=== PATIENT | female | born 1935 | race Hispanic/Latino ===

== ENCOUNTER 2018-05-23 14:05 | Emergency (ER) | payer MEDICARE ==
[2018-05-23 14:05] VITALS: BMI 26.5
[2018-05-23 14:15] VITALS: RESP 18; O2SAT 96
--- NOTE | 2018-05-23 14:43 | ED PDOC ---
Arrival/HPI - General Chief Complaint: High Blood Pressure Time Seen by Provider: 05/23/18 14:09 Historian: Patient - History of Present Illness Narrative History of Present Illness (Text): 05/23/18 14:43 A 70 year old female, whose past medical history includes 4 stents, ID, and diabetes, presents to the emergency department complaining of high blood pressure since earlier today. Patient reports she measured her blood pressure at home which measured to be 250/100. Patient states she spoke with Dr. Bright who urged her to go to the Emergency room. Patient states she only gets lightheaded when she puts on her new glasses. Patient's Emergency department blood pressure measurement is 160/60. Patient denies any fever, chills, shortness of breath, chest pain, diarrhea, nausea, vomiting, urinary symptoms, back pain, neck pain, headache, dizziness, or any other complaints. PMD: Dr. Bright Time/Duration: 4-6 hours (esrlier today) Symptom Onset: Gradual Symptom Course: Improving Activities at Onset: Light Context: Home Past Medical History - Provider Review Nursing Documentation Reviewed: Yes - Infectious Disease Hx of Infectious Diseases: None - Tetanus Immunization Tetanus Immunization: Unknown - Cardiac Hx Pacemaker: No Other/Comment: cardiac stent - Pulmonary Hx Chronic Obstructive Pulmonary Disease (COPD): Yes - Neurological Hx Paralysis: No - HEENT Hx HEENT Disorder: No - Renal Hx Renal Disorder: No - Endocrine/Metabolic Hx Diabetes Mellitus Type 2: Yes - Hematological/Oncological Hx Blood Transfusions: No Hx Blood Transfusion Reaction: No - Integumentary Hx Dermatological Disorder: No - Musculoskeletal/Rheumatological Hx Musculoskeletal Disorders: No - Gastrointestinal Hx Gastrointestinal Disorders: No - Genitourinary/Gynecological Hx Genitourinary Disorders: No - Psychiatric Hx Emotional Abuse: No Hx Physical Abuse: No Hx Substance Use: No - Surgical History Hx Cardiac Catheterization: Yes Hx Coronary Stent: Yes - Anesthesia Hx Anesthesia: Yes Hx Anesthesia Reactions: No Hx Malignant Hyperthermia: No - Suicidal Assessment Feels Threatened In Home Enviroment: No Family/Social History - Physician Review Nursing Documentation Reviewed: Yes Family/Social History: No Known Family HX Smoking Status: Light Smoker < 10 Cigarettes Daily Hx Alcohol Use: No Hx Substance Use: No Hx Substance Use Treatment: No Allergies/Home Meds Allergies/Adverse Reactions: Allergies ORANGES Adverse Reaction (Uncoded 06/12/13 13:33) URTICARIA Home Medications: Home Meds Medication Instructions Recorded Confirmed Aspirin [Aspir 81] 81 mg PO DAILY 12/11/12 08/15/15 Cilostazol [Pletal] 100 mg PO BID 12/11/12 08/15/15 Metoprolol Tartrate 25 mg PO BID 12/11/12 08/15/15 Alendronate [Fosamax] 1 tab PO SUN 04/07/14 08/15/15 Clopidogrel [Plavix] 75 mg PO DAILY 04/20/14 08/15/15 Atorvastatin [Lipitor] 40 mg PO DAILY 08/15/15 08/15/15 Pantoprazole Sodium [Protonix] 40 mg PO DAILY 08/15/15 08/15/15 Review of Systems - Physician Review All systems were reviewed & negative as marked: Yes - Review of Systems Constitutional: absent: Fatigue, Weight Change, Fevers, Night Sweats Eyes: absent: Vision Changes ENT: absent: Hearing Changes Respiratory: absent: SOB Cardiovascular: absent: Chest Pain, Palpitations, Edema, Calf Pain, CALDERA Gastrointestinal: absent: Abdominal Pain, Stool Changes, Diarrhea, Nausea, Vomiting, Anorexia, Food Intolerance Genitourinary Female: absent: Dysuria, Frequency, Hematuria, Urine Output Changes Musculoskeletal: absent: Back Pain, Neck Pain Skin: absent: Rash, Pruritis, Skin Lesions Neurological: absent: Headache, Dizziness, Focal Weakness, Gait Changes, Speech Changes, Facial Droop, Disequilibrium Endocrine: absent: Diaphoresis, Polyuria, Polydipsia Hemo/Lymphatic: absent: Adenopathy Psychiatric: absent: Anxiety, Depression Physical Exam Vital Signs Reviewed: Yes Vital Signs Temp Pulse Resp BP Pulse Ox 05/23/18 14:06 97.8 F 87 18 166/78 H 96 Temperature: Afebrile Blood Pressure: Hypertensive Pulse: Regular Respiratory Rate: Normal Appearance: Positive for: Well-Appearing, Non-Toxic, Comfortable Pain Distress: None Mental Status: Positive for: Alert and Oriented X 3 - Systems Exam Head: Present: Atraumatic, Normocephalic Pupils: Present: PERRL Extroacular Muscles: Present: EOMI Conjunctiva: Present: Normal Neck: Present: Normal Range of Motion. No: Meningeal Signs Respiratory/Chest: Present: Clear to Auscultation, Good Air Exchange. No: Respiratory Distress, Accessory Muscle Use Cardiovascular: Present: Regular Rate and Rhythm, Normal S1, S2. No: Murmurs Abdomen: Present: Normal Bowel Sounds. No: Tenderness, Distention, Peritoneal Signs Back: Present: Normal Inspection. No: CVA Tenderness Upper Extremity: Present: Normal Inspection, NORMAL PULSES, Capillary Refill < 2s. No: Cyanosis, Edema Lower Extremity: Present: Normal Inspection, NORMAL PULSES, Capillary Refill < 2 s. No: Edema, CALF TENDERNESS Neurological: Present: GCS=15, CN II-XII Intact, Speech Normal Skin: Present: Warm, Dry, Normal Color. No: Rashes Psychiatric: Present: Alert, Oriented x 3, Normal Insight, Normal Concentration Medical Decision Making ED Course and Treatment: 05/23/18 14:44 Impression: 83 year old female presenting to emergency department for high blood pressure. No other complaints. No CP or SOB. No abdominal pain. Pt notes glucose was 199 today but denies any other complaints. No sob, chest pain or abdominal pain. No decreased or increased urine output or GI or complaints. Likely Asymptomatic HTN. BP here is non-sig elevated. Plan: -- Emergency department fingerstick -- Reassess and disposition Prior Visits: Notes and results from previous visits were reviewed. Progress Notes: 05/23/18 14:[address] Bright who agrees with emergency department plan to discharge patient. He states he never received any complaints of chest pain or shortness of breath. glucose 105, clear for d/c home. pt agreeable to plan. - Scribe Statement The provider has reviewed the documentation as recorded by the Jonah Tolliver All medical record entries made by the Scribe were at my direction and personally dictated by me. I have reviewed the chart and agree that the record accurately reflects my personal performance of the history, physical exam, medical decision making, and the department course for this patient. I have also personally directed, reviewed, and agree with the discharge instructions and disposition. Disposition/Present on Arrival - Present on Arrival Any Indicators Present on Arrival: No History of DVT/PE: No History of Uncontrolled Diabetes: No Urinary Catheter: No History of Decub. Ulcer: No History Surgical Site Infection Following: None - Disposition Have Diagnosis and Disposition been Completed?: Yes Diagnosis: Asymptomatic hypertension Disposition: HOME/ ROUTINE Disposition Time: 14:55 Patient Problems: Current Active Problems Problem Status Onset Asymptomatic hypertension Acute Condition: GOOD Discharge Instructions (ExitCare): High Blood Pressure in Adults, Low Salt Diet, Controlling Your Blood Pressure Through Lifestyle Additional Instructions: CALL YOUR PRIMARY CARE DOCTOR IF YOUR PRESSURE IS ELEVATED AGAIN. YOU MIGHT NEED A NEW BLOOD PRESSURE CUFF. LENKA PANDA, thank you for letting us take care of you today. Your provider was Scott Nguyen and you were treated for HIGH BLOOD PRESSURE. The emergency medical care you received today was directed at your acute symptoms. If you were prescribed any medication, please fill it and take as directed. It may take several days for your symptoms to resolve. Return to the Emergency Department if your symptoms worsen, do not improve, or if you have any other problems. Please contact your doctor or call one of the physicians/clinics you have been referred to that are listed on the Patient Visit Information form that is included in your discharge packet. Bring any paperwork you were given at discharge with you along with any medications you are taking to your follow up visit. Our treatment cannot replace ongoing medical care by a primary care provider outside of the emergency department. Thank you for allowing the [facility] team to be part of your care today. If you had an X-Ray or CT scan: A Radiologist will review the ED reading if any change in treatment is needed we will contact you. If you had a blood, urine, or wound culture: It will take several days for the results, if any change in treatment is needed we will contact you. If you had an STI test: It will take 48 hours for the results. Please call after 1 week if you have not heard back. Referrals: Jamil Bright MD [Family Provider] - Follow up with primary Forms: Sevence (Belarusian)
[2018-05-23 15:23] VITALS: BP 156/82; PULSE 81; TEMP 98
== END 2018-05-23 15:24 | disposition home or self-care (01) ==
LOC: ED 14:05
DX: I10 Essential (primary) hypertension (principal); I25.2 Old myocardial infarction; E11.9 Type 2 diabetes mellitus without complications; Z95.5 Presence of coronary angioplasty implant and graft; F17.210 Nicotine dependence, cigarettes, uncomplicated

== ENCOUNTER 2018-07-11 12:37 | Outpatient (CLI) | payer MEDICARE | END 2018-07-11 12:38 | disposition home or self-care (01) | LOC: LAB 12:37 ==

== ENCOUNTER 2018-07-18 09:22 | Day surgery (SDC) | payer MEDICARE ==
[2018-07-18] MEDS ORDERED: Propofol 10 mg/ml Inj (20 ML) ONE ×2 (10:14→10:36)
[2018-07-18] MEDS ORDERED: Lactated Ringer's 1,000 ML IV SCH (10:15)
[2018-07-18] MEDS ORDERED: Phenylephrine 10 mg/ml Inj ONE (10:17)
[2018-07-18 14:29] VITALS: BP 166/82; PULSE 76; RESP 16; TEMP 98.3; O2SAT 98
== END 2018-07-18 12:34 | disposition home or self-care (01) ==
LOC: ENDO 09:22
PROVIDERS: ATTEND Internal Medicine Gastroenterology
DX: K29.70 Gastritis, unspecified, without bleeding (principal); K44.9 Diaphragmatic hernia without obstruction or gangrene; K21.9 Gastro-esophageal reflux disease without esophagitis; K22.70 Barrett's esophagus without dysplasia
CPT/HCPCS: 43239; 88305; 88312; 88342; J2001; J2370; J2704; J7040; J7120

== ENCOUNTER 2018-10-05 11:40 | Inpatient (IN) | payer MEDICARE ==
[2018-10-05 11:40] VITALS: BMI 26.5
[2018-10-05] MEDS ORDERED: Sodium Chloride 0.9% 1,000 ML IV STA (12:26)
--- NOTE | 2018-10-05 12:35 | ED PDOC ---
Arrival/HPI - General Chief Complaint: Weakness/Neurological Deficit Time Seen by Provider: 10/05/18 12:06 Historian: Patient - History of Present Illness Narrative History of Present Illness (Text): 10/05/18 12:32 A 83 year old female, whose past medical history includes COPD, hypertension, hyperlipidemia, [place], CAD, PBD, PUD, presents to the emergency department complaining of generalized weakness for the past 2 months. Patient reports she was trying to get off the couch, however was unable to due to weakness. Patient mentions she had an endoscopy done in 07/2018, performed by Dr. Whittington.Notes also experiencing diarrhea for the past 2 months, and abdominal pain, leg swelling, and chronic productive cough secondary to COPD. Patient denies any fever, chills, vomiting, nausea, or any other complaints at this time. Past Medical History - Provider Review Nursing Documentation Reviewed: Yes - Infectious Disease Hx of Infectious Diseases: None - Tetanus Immunization Tetanus Immunization: Unknown - Cardiac Hx Pacemaker: No - Pulmonary Hx Chronic Obstructive Pulmonary Disease (COPD): Yes - Neurological Hx Paralysis: No - HEENT Hx HEENT Disorder: No - Renal Hx Renal Disorder: No - Endocrine/Metabolic Hx Diabetes Mellitus Type 2: Yes - Hematological/Oncological Hx Blood Transfusions: No Hx Blood Transfusion Reaction: No - Integumentary Hx Dermatological Disorder: No - Musculoskeletal/Rheumatological Hx Musculoskeletal Disorders: Yes - Gastrointestinal Hx Gastrointestinal Disorders: No - Genitourinary/Gynecological Hx Genitourinary Disorders: No - Psychiatric Hx Substance Use: No - Surgical History Hx Cardiac Catheterization: Yes Hx Coronary Stent: Yes - Anesthesia Hx Anesthesia Reactions: No Hx Malignant Hyperthermia: No - Suicidal Assessment Feels Threatened In Home Enviroment: No Family/Social History - Physician Review Nursing Documentation Reviewed: Yes Family/Social History: No Known Family HX Smoking Status: Light Smoker < 10 Cigarettes Daily Hx Alcohol Use: No Hx Substance Use: No Hx Substance Use Treatment: No Allergies/Home Meds Allergies/Adverse Reactions: Allergies ORANGES Adverse Reaction (Uncoded 10/05/18 11:50) URTICARIA Home Medications: Home Meds Medication Instructions Recorded Confirmed Aspirin [Aspir 81] 81 mg PO DAILY 12/11/12 10/05/18 Atorvastatin [Lipitor] 40 mg PO DAILY 08/15/15 10/05/18 Carboxymethylcellulos/Glycerin 1 drop RIGHTEYE DAILY 07/14/18 10/05/18 [Optive 0.5%-0.9% 15 ml] Cholecalciferol (Vitamin D3) 2,000 unit PO DAILY 07/14/18 10/05/18 [Vitamin D3] Esomeprazole Magnesium [Nexium] 40 mg PO DAILY 07/14/18 10/05/18 Lutein [Stevie Natural Lutein] 20 mg PO DAILY 07/14/18 10/05/18 Metoprolol Tartrate [Lopressor] 25 mg PO BID 07/14/18 10/05/18 Rutin/Quercetin/Bioflav/Bilber 1 each PO DAILY 07/14/18 10/05/18 [Bilberry Extract 40 mg Cap] Trental 100 mg PO ACBD 07/14/18 10/05/18 Tumeric 500 mg PO DAILY 07/14/18 10/05/18 Vit A/Vit C/Vit E/Zinc/Copper 1 each PO BID 07/14/18 10/05/18 [Preservision Areds Softgel] metFORMIN [glucOPHAGE] 500 mg PO BID 07/14/18 10/05/18 Review of Systems - Physician Review All systems were reviewed & negative as marked: Yes - Review of Systems Constitutional: Other (generalized weakness). absent: Fevers, Night Sweats Respiratory: Cough Gastrointestinal: Abdominal Pain, Diarrhea. absent: Nausea, Vomiting Physical Exam Vital Signs Reviewed: Yes Vital Signs Temp Pulse Resp BP Pulse Ox 10/05/18 11:50 99.3 F 111 H 20 166/78 H 95 Temperature: Afebrile Blood Pressure: Hypertensive Pulse: Regular Respiratory Rate: Normal Appearance: Positive for: Well-Appearing, Non-Toxic, Comfortable Pain Distress: None Mental Status: Positive for: Alert and Oriented X 3 - Systems Exam Head: Present: Atraumatic, Normocephalic Pupils: Present: PERRL Extroacular Muscles: Present: EOMI Conjunctiva: Present: Normal Mouth: Present: Moist Mucous Membranes Neck: Present: Normal Range of Motion Respiratory/Chest: Present: Clear to Auscultation, Good Air Exchange. No: Respiratory Distress, Accessory Muscle Use Cardiovascular: Present: Regular Rate and Rhythm, Normal S1, S2. No: Murmurs Abdomen: Present: Tenderness (LUQ region). No: Distention, Peritoneal Signs, Rebound, Guarding Back: Present: Normal Inspection Upper Extremity: Present: Normal Inspection. No: Cyanosis, Edema Lower Extremity: Present: Edema (mild) Neurological: Present: GCS=15, CN II-XII Intact, Speech Normal Skin: Present: Warm, Dry, Normal Color. No: Rashes Psychiatric: Present: Alert, Oriented x 3, Normal Insight, Normal Concentration Medical Decision Making ED Course and Treatment: 10/05/18 12:34 Impression: 83 year old female with generalized weakness, diarrhea, abdominal pain, and cough. Differential Diagnosis included but are not limited to: Generalized weakness from Chronic Diarrhea and Chronic Abdominal Pain. Plan: -- EKG -- Chest X-ray -- Labs -- Pepcid -- IV Fluids -- Urinalysis -- Reassess and disposition Progress Notes: 10/05/18 13:15 10/05/2018 Chest X-ray IMPRESSION: Atypical left pneumothorax. Chest CT advised for confirmation/further evaluation. Left upper lobe infiltrate. These represent new findings compared to the prior Chest X-ray. Dictator: Kwabena Liz MD 10/05/2018 14:[address] IMPRESSION: Subsegmental left upper and left lower lobe infiltrates. Underlying bronchitis. No left pneumothorax. Dictator: Kwabena Liz MD 10/05/18 15:01 Imaging findings discussed with Dr. Huerta, who is aware. Dr. Huerta requests for infectious disease physician to be contacted to evaluated patient. 10/05/18 15:[address] García, who accepts patient. - Lab Interpretations I have reviewed the lab results: Yes - RAD Interpretation Radiology Orders: 10/05/18 12:26 CHEST PORTABLE [RAD] Stat - Medication Orders Current Medication Orders: Sodium Chloride (Sodium Chloride 0.9%) 1,000 mls @ 100 mls/hr IV .Q10H STA Stop: 10/05/18 22:25 Discontinued Medications Famotidine (Pepcid) 20 mg IVP STAT STA Stop: 10/05/18 12:27 - Scribe Statement The provider has reviewed the documentation as recorded by the Jonah Eid Provider Scribe Attestation: All medical record entries made by the Scribe were at my direction and personally dictated by me. I have reviewed the chart and agree that the record accurately reflects my personal performance of the history, physical exam, medical decision making, and the department course for this patient. I have also personally directed, reviewed, and agree with the discharge instructions and disposition. Disposition/Present on Arrival - Present on Arrival Any Indicators Present on Arrival: No History of DVT/PE: No History of Uncontrolled Diabetes: No Urinary Catheter: No History of Decub. Ulcer: No History Surgical Site Infection Following: None - Disposition Have Diagnosis and Disposition been Completed?: Yes Diagnosis: Pneumonia, COPD exacerbation Disposition: HOSPITALIZED Disposition Time: 17:04 Patient Plan: Admission Patient Problems: Current Active Problems Problem Status Onset COPD exacerbation Acute Pneumonia Acute Condition: GUARDED
--- NOTE | 2018-10-05 13:14 | RAD ---
Date of service: 10/05/2018 HISTORY: r/o Pneumonia COMPARISON: 10/11/2016 single-view chest FINDINGS: LUNGS: Peripheral infiltrate left upper lobe. PLEURA: Atypical appearing left pneumothorax. This is laterally only. CARDIOVASCULAR: Atherosclerotic calcifications identified primarily aortic arch. No radiographic findings to suggest acute or significant cardiovascular disease. OSSEOUS STRUCTURES: No significant abnormalities. VISUALIZED UPPER ABDOMEN: Normal. OTHER FINDINGS: None. IMPRESSION: Atypical left pneumothorax. Chest CT advised for confirmation/further evaluation. Left upper lobe infiltrate. These represent new findings compared to the prior chest x-ray. Communication of critical results: Study completed 12:44. Findings discussed verbally with the referring physician in the emergency department at 13:08.
[2018-10-05 13:15] LABS: BASO # 0.01 K/mm3 (0.0-2.0); BASO % 0.1 % (0.0-3.0); HEMOGLOBIN 14.1 g/dL (12.0-16.0); LYMPH # 0.8 (1.2-3.4); LYMPH % 6.5 % (22.0-35.0); MEAN CELL VOLUME 87.5 fl (80.0-105.0); MEAN CORPUSCULAR HEMOGLOBIN 30.3 pg (25.0-35.0); MEAN CORPUSCULAR HGB CONC 34.6 g/dl (31.0-37.0); MEAN PLATELET VOLUME 10.6 fl (7.0-11.0); MONO # 1.4 (0.1-0.6); MONO % 11.7 % (1.0-6.0); RBC 4.65 10^6/uL (3.5-6.1); RED CELL DISTRIBUTION WIDTH 13.3 % (11.5-14.5); WHITE BLOOD COUNT 12.1 10^3/uL (4.5-11.0)
[2018-10-05] MEDS ORDERED: Albuterol 0.083% Inhal Sol (2.5 mg/3 mL) UD INH STA (13:15)
[2018-10-05 13:16] LABS: INR 1.27; PARTIAL THROMBOPLASTIN TIME 27.1 Seconds (26.9-38.3); PROTHROMBIN TIME 14.4 SECONDS (9.4-12.5)
[2018-10-05 13:30] LABS: ALB/GLOB RATIO 1.1 (1.1-1.8); ALT/SGPT 9 U/L (7-56); AMYLASE 52 U/L (35-125); AST/SGOT 31 U/L (14-36); BLOOD UREA NITROGEN 12 mg/dL (7-21); CALCIUM 9.5 mg/dL (8.4-10.5); GFR NON-AFRICAN AMERICAN > 60; LIPASE 37 U/L (23-300)
[2018-10-05 13:40] LABS: TROPONIN I 0.02 ng/mL
[2018-10-05] MEDS ORDERED: Potassium Chloride 20 mEq ER Tab PO STA (13:41)
--- NOTE | 2018-10-05 14:29 | CT ---
Date of service: 10/05/2018 PROCEDURE: CT Chest without contrast HISTORY: r/o Pneumothorax COMPARISON: October 05, 2018. Single-view chest suggesting possible left pneumothorax. TECHNIQUE: Contiguous axial images were obtained through the chest without intravenous contrast enhancement. Sagittal and coronal reconstructions were performed. Radiation dose: Total exam DLP = 204.02 mGy-cm. This CT exam was performed using one or more of the following dose reduction techniques: Automated exposure control, adjustment of the mA and/or kV according to patient size, and/or use of iterative reconstruction technique. FINDINGS: LUNGS: Subsegmental infiltrates left upper and left lower lobe. Lower airway disease/bronchitic change. MEDIASTINUM: Unremarkable thoracic aorta. No aneurysm. Normal sized heart. Main pulmonary artery unremarkable. No vascular congestion. No lymphadenopathy. Atherosclerotic calcification and mural plaque present. Findings are seen throughout the aorta including arch and descending aorta. No evidence of aortic aneurysm. PLEURA: No pneumothorax is evident on the current study. Therefore the findings identified on recent chest x-ray are presumed to be artifactual perhaps a skin fold. BONES: No fracture. No destructive lesion. Multilevel degenerative change. UPPER ABDOMEN: Grossly unremarkable. OTHER FINDINGS: None. IMPRESSION: Subsegmental left upper and left lower lobe infiltrates. Underlying bronchitis. No left pneumothorax. Communication of results: Study completed at 14:07. Verbal results provided at 14:22.
[2018-10-05] MEDS ORDERED: cefTRIAXone (Rocephin) 2 gm Inj IVPB ONE (14:37)
[2018-10-05] MEDS ORDERED: Azithromycin 500MG/NS 250ml 500 MG/250 ML BAG IVPB STA (14:39)
[2018-10-05] MEDS ORDERED: cefTRIAXone 1 GM/100 ML BAG IVPB STA (14:40)
[2018-10-05 17:00] LABS: URINE APPEARANCE SLIGHT-CLOUDY (CLEAR); URINE BILIRUBIN NEGATIVE (NEGATIVE); URINE BLOOD LARGE (NEGATIVE); URINE COLOR AMBER (YELLOW); URINE GLUCOSE (UA) NEGATIVE (NEGATIVE); URINE LEUKOCYTE ESTERASE NEGATIVE Leu/uL (NEGATIVE); URINE PROTEIN 100 mg/dL (<30 mg/dL)
[2018-10-05 17:24] LABS: URINE AMORPHOUS SEDIMENT TRACE /hpf; URINE BACTERIA TRACE /hpf; URINE RBC TNTC /hpf (0-2)
--- NOTE | 2018-10-05 18:15 | CARD ---
APPROVED REPORT Date of service: 10/05/2018 EKG Measurement Heart [id number] <Conclusion> Sinus tachycardia Possible Left atrial enlargement Right bundle branch block Abnormal ECG
[2018-10-05] MEDS ORDERED: Albuterol-Ipratrop 3 mg / 0.5 (3 ml) UD IH PRN (19:59)
[2018-10-05] MEDS: Albuterol-Ipratrop 3 mg / 0.5 (3 ml) UD IH SCH (20:54)
[2018-10-05] MEDS: MethylPREDNISolone 40 mg Vial IV SCH (21:34)
[2018-10-06] MEDS: Albuterol-Ipratrop 3 mg / 0.5 (3 ml) UD IH SCH ×4 (00:59→18:45)
--- NOTE | 2018-10-06 02:09 | HP ---
DATE OF EXAM: <> 10/05/2018 ' HISTORY OF PRESENT ILLNESS: The patient is an 83-year-old, who was brought in by her son who is currently at the bedside that when she woke this morning she was very weak, unable to get out of bed and she almost fell, so he state that her weakness is getting progressively worse. So brought to the emergency room for further evaluation. The patient is active smoker and have been coughing a lot to lately; however, there is no history of fever, no history of chills. No nausea or vomiting; however, she does have a history of intermittent diarrhea and constipation. Has been scoped by Dr. Whittington 2 years ago. PAST MEDICAL HISTORY: Significant for: 1. Hypertension. 2. Coronary artery disease. 3. History of COPD. 4. Status post angioplasty in 2005. 5. Noninsulin-dependent diabetes. 6. Chronic diarrhea. SOCIAL HISTORY: She is active smoker. She will smoke 1 pack a day for last 40 years. Denies alcohol use. ALLERGIES: SHE IS ALLERGIC TO ORANGE JUICE AND ORANGES. MEDICATIONS AT HOME: She is on multivitamin, she is on metformin 500 twice a day, metoprolol 25 twice a day, Nexium 40 daily, Lipitor 40 mg daily, aspirin 81 daily and Trental 100 mg three times a day. PHYSICAL EXAMINATION: GENERAL: She looks pale, weak, short of breath, actively coughing. VITAL SIGNS: She has temperature of 99.3, pulse 111, respirations 20, and blood pressure 129/62. LUNGS: Bilateral diffusely decreased breath sound. Soft crackle that improve by coughing. She has right lower lobe crackles also. HEART: S1 and S2 audible. ABDOMEN: Soft, nontender. No rebound. No guarding. NEUROLOGIC: The patient is awake and alert, able to communicate. LABORATORY EXAMINATION: WBC 12.1, hemoglobin 14, hematocrit 40, platelet 167. PT 14.4, INR 1.27. Chemistry: Sodium 133, potassium 3.4, chloride 96, CO2 of 27, BUN 12, creatinine 0.5. Blood sugar of 183. Urine shows positive nitrites and large blood. She had CT scan of the chest done that shows subsegmental left upper and left lower lobe infiltrate. ASSESSMENT: 1. Generalized weakness. 2. Left upper and left lower lobe infiltrate. 3. Chronic obstructive pulmonary disease. 4. Hypertension. 5. Hyperlipidemia. 6. Noninsulin dependent diabetes. PLAN: We will start the patient on aspirin. We will resume her metformin, metoprolol, atorvastatin, start her on nebulizer treatment. We will get Dr. García for extension course counselor, physical therapy evaluation will be requested. Sputum test, AFB will be requested and Dr. Nguyen will followup the patient in a.m. Song Huerta MD
[2018-10-06] MEDS: Insulin Reg-MEDIUM-Coverage SC SCH ×5 (03:45→22:52)
[2018-10-06 09:11] LABS: BASO # 0.01 K/mm3 (0.0-2.0); BASO % 0.1 % (0.0-3.0); HEMOGLOBIN 13.1 g/dL (12.0-16.0); LYMPH # 0.8 (1.2-3.4); LYMPH % 7.1 % (22.0-35.0); MEAN CELL VOLUME 86.6 fl (80.0-105.0); MEAN CORPUSCULAR HEMOGLOBIN 30.2 pg (25.0-35.0); MEAN CORPUSCULAR HGB CONC 34.8 g/dl (31.0-37.0); MEAN PLATELET VOLUME 10.6 fl (7.0-11.0); MONO # 0.4 (0.1-0.6); MONO % 3.6 % (1.0-6.0); RBC 4.34 10^6/uL (3.5-6.1); RED CELL DISTRIBUTION WIDTH 13.1 % (11.5-14.5); WHITE BLOOD COUNT 11.8 10^3/uL (4.5-11.0)
[2018-10-06] MEDS: Azithromycin 500MG/NS 250ml 500 MG/250 ML BAG IVPB SCH (09:13)
[2018-10-06] MEDS: MethylPREDNISolone 40 mg Vial IV SCH ×2 (09:16→22:51)
[2018-10-06] MEDS: Enoxaparin 30 mg Syringe SC SCH (09:19)
[2018-10-06] MEDS: Pantoprazole 40 mg EC Tab PO SCH (09:20)
[2018-10-06 09:32] LABS: ALB/GLOB RATIO 1.1 (1.1-1.8); ALBUMIN 3.9 g/dL (3.0-4.8); ALT/SGPT 13 U/L (7-56); AST/SGOT 28 U/L (14-36); BLOOD UREA NITROGEN 15 mg/dL (7-21); CALCIUM 9.3 mg/dL (8.4-10.5); GFR NON-AFRICAN AMERICAN > 60
[2018-10-06] MEDS ORDERED: Potassium Chloride 20 mEq ER Tab PO ONE ×2 (10:10→18:00)
[2018-10-06] MEDS ORDERED: Insulin Detemir 100 units/ml Vial (Levemir) SC ONE (10:40)
--- NOTE | 2018-10-06 12:11 | CP.PCM.PCO ---
Additional Comments - Additional Comments Additional Comments: JUSTIN/LLL infiltrate, continue antibiotics as per ID, respiratory isolation, PT eval pending, BC/UC pending, AFB pending results.
[2018-10-06] MEDS: cefTRIAXone 1 gm 1 GM/100 ML BAG IVPB SCH (15:50)
--- NOTE | 2018-10-06 16:24 | CP.PCM.PN ---
<Vladimir Forde - Last Filed: 10/06/18 16:50> Subjective - Date & Time of Evaluation Date of Evaluation: 10/06/18 Time of Evaluation: 07:50 - Subjective Subjective: Vladimir Forde D.O. PGY-3, Internal Medicine Resident, Dr. Marsh Service Progress Note 83-year-old female with a past medical history of hypertension, CAD, COPD, [id number] diabetes and chronic diarrhea who presented for complaints of weakness. Patient was seen and examined at bedside. Patient states that she is still having some cough. Shortness of breath is somewhat better. Denies any recent travel out of the country or possible tuberculosis exposure. Objective - Vital Signs/Intake and Output Vital Signs (last 24 hours): Temp Pulse Resp BP Pulse Ox 97.9 F 91 H 18 124/71 98 10/06/18 06:00 10/06/18 06:00 10/06/18 06:00 10/06/18 06:00 10/06/18 06:00 Intake and Output: 10/06/18 10/06/18 06:59 18:59 Intake Total 1020 Output Total 2 Balance 1018 - Medications Medications: Current Medications Acetaminophen (Tylenol 325mg Tab) 650 mg PO Q6H PRN PRN Reason: Fever >100.4 F Albuterol/Ipratropium (Duoneb 3 Mg/0.5 Mg (3 Ml) Ud) 3 ml IH Q2H PRN PRN Reason: Shortness of Breath Albuterol/Ipratropium (Duoneb 3 Mg/0.5 Mg (3 Ml) Ud) 3 ml IH [id number] [facility] Last Admin: 10/06/18 13:21 Dose: 3 ml Aspirin (Ecotrin) 81 mg PO DAILY [facility] Last Admin: 10/06/18 09:20 Dose: 81 mg Atorvastatin Calcium (Lipitor) 40 mg PO HS [facility] Budesonide (Pulmicort Respules) 0.5 mg IH [id number] [facility] Enoxaparin Sodium (Lovenox) 30 mg SC DAILY [facility]; Protocol Last Admin: 10/06/18 09:19 Dose: 30 mg Ceftriaxone Sodium (Rocephin 1 Gram Ivpb) 1 gm in 100 mls @ 100 mls/hr IVPB 1400 [facility]; Protocol Last Admin: 10/06/18 15:50 Dose: 100 mls/hr Azithromycin (Zithromax 500mg In Ns) 500 mg in 250 mls @ 167 mls/hr IVPB DAILY [facility]; Protocol Last Admin: 10/06/18 09:13 Dose: 167 mls/hr Insulin Detemir (Levemir) 10 unit SC HS [facility] Insulin Human Regular (Humulin R Med) 0 units SC ACHS [facility]; Protocol Last Admin: 10/06/18 12:05 Dose: 5 units Methylprednisolone (Solu-Medrol) 40 mg IV Q12 [facility] Last Admin: 10/06/18 09:16 Dose: 40 mg Metoprolol Tartrate (Lopressor) 25 mg PO BID [facility] Last Admin: 10/06/18 09:20 Dose: 25 mg Ondansetron HCl (Zofran Inj) 4 mg IVP Q6H PRN PRN Reason: Nausea/Vomiting Pantoprazole Sodium (Protonix Ec Tab) 40 mg PO 629 [facility] Last Admin: 10/06/18 09:20 Dose: 40 mg Potassium Chloride (K-Dur 20 Meq Er Tab) 40 meq PO ONCE ONE Stop: 10/06/18 18:01 - Labs Labs: 10/06/18 09:00 10/06/18 09:00 PT 14.4 SECONDS (9.4-12.5) H 10/05/18 12:47 INR 1.27 10/05/18 12:47 APTT 27.1 Seconds (26.9-38.3) 10/05/18 12:47 - Constitutional Appears: Non-toxic, No Acute Distress - Head Exam Head Exam: ATRAUMATIC, NORMOCEPHALIC - Eye Exam Eye Exam: EOMI. absent: Scleral icterus - ENT Exam ENT Exam: Mucous Membranes Moist - Neck Exam Neck Exam: absent: Lymphadenopathy - Respiratory Exam Respiratory Exam: Decreased Breath Sounds. absent: Rales, Rhonchi, Wheezes - Cardiovascular Exam Cardiovascular Exam: +S1, +S2. absent: Gallop, Murmur - GI/Abdominal Exam GI & Abdominal Exam: Soft, Normal Bowel Sounds. absent: Tenderness - Extremities Exam Extremities Exam: absent: Joint Swelling - Neurological Exam Neurological Exam: Alert, Awake, Oriented x3 - Psychiatric Exam Psychiatric exam: Normal Affect, Normal Mood - Skin Skin Exam: Dry, Intact, Warm Assessment and Plan - Assessment and Plan (Free Text) Assessment: 83-year-old female with a past medical history of hypertension, CAD, COPD, tjy-tgqofzu-tfnsjsjhj diabetes and chronic diarrhea who presented for complaints of weakness, found to have sepsis with RUL and RLL infiltrates. Plan: 1. Sepsis likely secondary to left upper and left lower lobe infiltrate 2. Hematuria 3. COPD 4. Hypertension 5. Hyperlipidemia 6. Snx-hrdsihz-rvfjuwdby diabetes mellitus 7. Hypokalemia Leukocytosis downtrending. Afebrile. Leukocytosis is down trended. Currently on ceftriaxone. Added azithromycin. Continue with inhaler treatments. Continue with Levemir and insulin sliding scale. Follow blood sugars closely. Continue with Solu-Medrol 40 mg IV every 12. Hypokalemia repleted. Will recheck tomorrow. AFB cultures pending. Blood cultures pending. Urine cultures pending. Repeat UA ordered to eval hematuria. ID following. Pending recommendations. BP well controlled,c ontinue metoprolol. Lovenox for DVT prophylaxis. PT to evaluate. Patient was seen and examined and case was discussed at length with attending physician. <Damian Marsh S - Last Filed: 10/06/18 21:26> Objective - Vital Signs/Intake and Output Vital Signs (last 24 hours): Temp Pulse Resp BP Pulse Ox 97.9 F 91 H 18 124/71 98 10/06/18 06:00 10/06/18 06:00 10/06/18 06:00 10/06/18 06:00 10/06/18 06:00 - Medications Medications: Current Medications Acetaminophen (Tylenol 325mg Tab) 650 mg PO Q6H PRN PRN Reason: Fever >100.4 F Albuterol/Ipratropium (Duoneb 3 Mg/0.5 Mg (3 Ml) Ud) 3 ml IH Q2H PRN PRN Reason: Shortness of Breath Albuterol/Ipratropium (Duoneb 3 Mg/0.5 Mg (3 Ml) Ud) 3 ml IH [id number] [facility] Last Admin: 10/06/18 18:45 Dose: 3 ml Aspirin (Ecotrin) 81 mg PO DAILY [facility] Last Admin: 10/06/18 09:20 Dose: 81 mg Atorvastatin Calcium (Lipitor) 40 mg PO HS [facility] Budesonide (Pulmicort Respules) 0.5 mg IH [id number] [facility] Last Admin: 10/06/18 18:45 Dose: 0.5 mg Enoxaparin Sodium (Lovenox) 30 mg SC DAILY [facility]; Protocol Last Admin: 10/06/18 09:19 Dose: 30 mg Ceftriaxone Sodium (Rocephin 1 Gram Ivpb) 1 gm in 100 mls @ 100 mls/hr IVPB 1400 [facility]; Protocol Last Admin: 10/06/18 15:50 Dose: 100 mls/hr Azithromycin (Zithromax 500mg In Ns) 500 mg in 250 mls @ 167 mls/hr IVPB DAILY [facility]; Protocol Last Admin: 10/06/18 09:13 Dose: 167 mls/hr Insulin Detemir (Levemir) 10 unit SC HS [facility] Insulin Human Regular (Humulin R Med) 0 units SC ACHS [facility]; Protocol Last Admin: 10/06/18 18:27 Dose: 5 units Methylprednisolone (Solu-Medrol) 40 mg IV Q12 [facility] Last Admin: 10/06/18 09:16 Dose: 40 mg Metoprolol Tartrate (Lopressor) 25 mg PO BID [facility] Last Admin: 10/06/18 18:27 Dose: 25 mg Ondansetron HCl (Zofran Inj) 4 mg IVP Q6H PRN PRN Reason: Nausea/Vomiting Pantoprazole Sodium (Protonix Ec Tab) 40 mg PO 0630 [facility] Last Admin: 10/06/18 09:20 Dose: 40 mg - Labs Labs: 10/06/18 09:00 10/06/18 09:00 PT 14.4 SECONDS (9.4-12.5) H 10/05/18 12:47 INR 1.27 10/05/18 12:47 APTT 27.1 Seconds (26.9-38.3) 10/05/18 12:47 Assessment and Plan - Assessment and Plan (Free Text) Plan: Pt seen and examined by me. I have reviewed the note of the medical administrative technician and I agree with it. I have discussed the assessment and plan with the resident. I have reviewed the medications and the last labs.
[2018-10-06] MEDS: Budesonide 0.5 mg/2 ml Inhal Susp UD IH SCH (18:45)
[2018-10-06 20:57] LABS: PH,URINE 6.5 (4.7-8.0); URINE BILIRUBIN NEGATIVE (NEGATIVE); URINE BLOOD LARGE (NEGATIVE); URINE GLUCOSE (UA) NEGATIVE (NEGATIVE); URINE LEUKOCYTE ESTERASE NEGATIVE Leu/uL (NEGATIVE); URINE PROTEIN TRACE mg/dL (<30 mg/dL); URINE UROBILINOGEN 0.2 E.U./dL (<1 E.U./dL)
[2018-10-06 20:58] LABS: URINE APPEARANCE SL CLOUDY (CLEAR); URINE COLOR YELLOW (YELLOW)
[2018-10-06 21:18] LABS: URINE RBC 25 - 30 /hpf (0-2)
[2018-10-06 21:19] LABS: URINE BACTERIA FEW /hpf
[2018-10-06] MEDS: Insulin Detemir 100 units/ml Vial (Levemir) SC SCH (22:51)
--- NOTE | 2018-10-07 01:39 | PN ---
DATE: 10/06/2018 SUBJECTIVE: The patient was seen and examined. I do agree with the note of the emergency medical dispatcher. I was involved in the plan of care. The patient has been admitted to the hospital because of sepsis secondary to community-acquired pneumonia. The patient has a history of COPD and has been placed on Solu-Medrol. The urine cultures are pending as well as the blood cultures. ASSESSMENT AND PLAN: The patient is going to be seen by Infectious Disease. She has a history of diabetes type 2 and will be placed on insulin sliding scale. The patient has hypokalemia, and the potassium has been replaced. She is currently on nebulizer treatment. She is going to continue her aspirin. She is on Lipitor for dyslipidemia. She is on Lovenox for deep vein thrombosis prophylaxis. She is going to continue with carbohydrate-consistent diet for her diabetes. Damian Marsh MD
[2018-10-07] MEDS: Albuterol-Ipratrop 3 mg / 0.5 (3 ml) UD IH SCH ×4 (01:43→20:44)
[2018-10-07] MEDS: Pantoprazole 40 mg EC Tab PO SCH (06:51)
[2018-10-07] MEDS: Budesonide 0.5 mg/2 ml Inhal Susp UD IH SCH ×2 (07:07→20:44)
[2018-10-07 07:18] LABS: BASO # 0.01 K/mm3 (0.0-2.0); BASO % 0.1 % (0.0-3.0); LYMPH # 0.8 (1.2-3.4); LYMPH % 6.4 % (22.0-35.0); MEAN CELL VOLUME 87.6 fl (80.0-105.0); MEAN CORPUSCULAR HEMOGLOBIN 29.1 pg (25.0-35.0); MEAN CORPUSCULAR HGB CONC 33.2 g/dl (31.0-37.0); MEAN PLATELET VOLUME 10.6 fl (7.0-11.0); MONO # 0.9 (0.1-0.6); MONO % 7.2 % (1.0-6.0); RBC 4.12 10^6/uL (3.5-6.1); RED CELL DISTRIBUTION WIDTH 13.5 % (11.5-14.5); WHITE BLOOD COUNT 13.1 10^3/uL (4.5-11.0)
--- NOTE | 2018-10-07 07:21 | CON ---
DATE: 10/06/2018 The patient is seen in 574, bed 2. CHIEF COMPLAINT: Shortness of breath times several days. HISTORY OF PRESENT ILLNESS: This is a 83-year-old female, long-time smoker, who continues to smoker a pack a day, end-stage chronic obstructive lung disease, hypertension, diabetes, hyperlipidemia, coronary artery disease, myocardial infarction, and peptic ulcer disease, who is admitted because of pulmonary symptoms. Infiltrate was seen however. On chest x-ray, upper lobe infiltrate was seen and concerned about tuberculosis. This patient has had no fevers and no chills, just a cough, nonproductive. No chest pain. No abdominal pain, diarrhea, or constipation. No dysuria or frequency. No headaches or blurred vision. PAST MEDICAL HISTORY: Significant for chronic obstructive lung disease, diabetes, hypertension, hyperlipidemia, coronary artery disease, myocardial infarction, and peptic ulcer disease. PAST SURGICAL HISTORY: Cardiac catheterization. The patient had colonoscopy for chronic diarrhea that has been going on for 3 years. ALLERGIES: THE PATIENT IS ALLERGIC TO ORANGES. MEDICATIONS AT HOME: Noted and include metformin and Nexium. PHYSICAL EXAMINATION: GENERAL: She is in bed, appearing weak with a temperature of 98, blood pressure is 109/59, respiratory rate of 20, and heart rate of 106. Examination of HEENT is unremarkable. NECK: Supple. LUNGS: Have decreased breath sounds. HEART: Normal S1, S2. ABDOMEN: Soft, nontender. LABORATORY EXAMINATION: Reveals the patient's white count of 12,100; hemoglobin of 14; platelets of 167. Urinalysis reveals there is trace protein and positive nitrites and too numerous rbc's to count. Imaging is reviewed. Chest x-ray is noted. CAT scan is noted. Dr. Marsh's note is reviewed. ASSESSMENT AND PLAN: This is an 83-year-old female with sepsis with left-sided community-acquired pneumonia. I very hardly doubt tuberculosis. The patient was born in [place]. He is [place] born and only travel was to [place]. Never been in correction. Never has been homeless. No exposure to tuberculosis. This is not tuberculosis. Continue with Rocephin and Zithromax. We will order a procalcitonin. We will order also ANCA vasculitis and Goodpasture's workup and Asif's, stool for cultures. We will make further recommendations. Andrea MD [facility] # [id number]
[2018-10-07 07:45] LABS: ALBUMIN 3.5 g/dL (3.0-4.8); ALT/SGPT 33 U/L (7-56); AST/SGOT 37 U/L (14-36); BLOOD UREA NITROGEN 19 mg/dL (7-21); GFR NON-AFRICAN AMERICAN > 60
[2018-10-07] MEDS: Insulin Reg-MEDIUM-Coverage SC SCH ×4 (08:12→22:05)
--- NOTE | 2018-10-07 09:42 | PN ---
DATE: 10/07/2018 SUBJECTIVE: The patient has no complaints of any chest pain, no shortness of breath, no headaches. PHYSICAL EXAMINATION: VITAL SIGNS: Temperature is 97.9, pulse of 111, blood pressure 139/80, respirations 18. GENERAL: The patient is lying in bed, flat, comfortable. HEENT: No oral lesion. Anicteric sclerae. Moist mucosa. NECK: No JVD, adenopathy, or thyromegaly. CARDIOVASCULAR: S1 and S2, regular. No murmurs, rubs, or gallops. LUNGS: Clear to auscultation bilaterally. No wheeze, rales, or rhonchi. ABDOMEN: Bowel sounds are positive, soft, nontender and nondistended. EXTREMITIES: No cyanosis, clubbing or edema. LABORATORY DATA: White count of 13.1, hemoglobin is 12, creatinine 0.6. ASSESSMENT. 1. Sepsis secondary to community-acquired pneumonia. 2. Community-acquired pneumonia. 3. Chronic obstructive pulmonary disease. 4. Hypertension. 5. Dyslipidemia. 6. Diabetes type 2. 7. Hypokalemia. PLAN: The patient is currently comfortable, no white cells. White counts remained mildly elevated. The patient had a phosphorus that is low, we will need to replace the patient's phosphorus. She had hypokalemia. The potassium is improved. She has blood cultures that have been negative. She is receiving aspirin daily. She is on insulin for her diabetes with Levemir. She is on Lipitor for dyslipidemia. She is on Lovenox for DVT prophylaxis. She is on Rocephin and Zithromax. She is being followed by infectious disease. I did discontinue the respiratory isolation the patient had. Damian Marsh MD
[2018-10-07] MEDS: Azithromycin 500MG/NS 250ml 500 MG/250 ML BAG IVPB SCH (10:46)
[2018-10-07] MEDS: Potassium & Sodium Phosphate PO SCH ×2 (10:48→17:07)
[2018-10-07] MEDS: Enoxaparin 30 mg Syringe SC SCH (10:48)
[2018-10-07] MEDS: MethylPREDNISolone 40 mg Vial IV SCH ×2 (10:48→21:28)
[2018-10-07] MEDS: cefTRIAXone 1 gm 1 GM/100 ML BAG IVPB SCH (13:27)
[2018-10-07] MEDS: Insulin Detemir 100 units/ml Vial (Levemir) SC SCH (22:10)
--- NOTE | 2018-10-07 23:02 | PN ---
DATE: 10/07/2018 SUBJECTIVE: The patient is in bed, in no acute distress. She was seen earlier today. PHYSICAL EXAMINATION VITAL SIGNS: She is still short of breath with a temperature of 98, blood pressure is 130/80, respiratory rate of 20, heart rate of 109. HEENT: Unremarkable. NECK: Supple. LUNGS: Have decreased breath sounds. HEART: Normal S1, S2. ABDOMEN: Soft. LABORATORY DATA: Reveals the patient's white count is 13,000. Chemistries are noted. BUN is 19, creatinine of 0.6. Procalcitonin is 0.15. Urinalysis is noted. Microbiology reveals the blood cultures are negative, urine cultures are negative. REVIEW OF ORDERS: Dr. Marsh's note is reviewed. Review of orders reveals the patient to be on ceftriaxone and azithromycin IV. ASSESSMENT AND PLAN: An 83-year-old female with sepsis with left-sided community-acquired pneumonia with pneumonia with a normal procalcitonin. We will change the Zithromax to p.o. upon discharge and may discontinue ceftriaxone and complete with p.o. a status short course of p.o. Zithromax. The patient continues to be a smoker, which is really the underlying problem. Andrea García MD
[2018-10-08] MEDS: Albuterol-Ipratrop 3 mg / 0.5 (3 ml) UD IH SCH ×3 (02:28→14:27)
[2018-10-08] MEDS: Pantoprazole 40 mg EC Tab PO SCH (05:31)
[2018-10-08] MEDS: Budesonide 0.5 mg/2 ml Inhal Susp UD IH SCH (07:59)
[2018-10-08] MEDS: Insulin Reg-MEDIUM-Coverage SC SCH ×2 (08:47→12:25)
[2018-10-08] MEDS ORDERED: MethylPREDNISolone 40 mg Vial IV SCH (10:00)
[2018-10-08] MEDS: Potassium & Sodium Phosphate PO SCH (11:23)
[2018-10-08] MEDS: Enoxaparin 30 mg Syringe SC SCH (11:23)
--- NOTE | 2018-10-08 12:18 | CP.PCM.CON ---
<Hugh Brown - Last Filed: 10/08/18 12:14> History of Present Illness - History of Present Illness History of Present Illness: Podiatry consult - Drs. Gill/Janet 83F seen and evaluated this AM with Dr. Gill for elongated and painful nails. States she has not had her nails cut in months. Reports mild discomfort when applying socks putting sheets over her feet while in bed. Denies any drainage or bleeding to the nails and has no other acute pedal complaints. Denies n/v/f/c/sob. Past Patient History - Infectious Disease Hx of Infectious Diseases: None - Tetanus Immunizations Tetanus Immunization: Unknown - Past Social History Smoking Status: Light Smoker < 10 Cigarettes Daily - CARDIAC Hx Pacemaker: No - PULMONARY Hx Chronic Obstructive Pulmonary Disease (COPD): Yes - NEUROLOGICAL Hx Paralysis: No - HEENT Hx HEENT Problems: No - RENAL Hx Chronic Kidney Disease: No - ENDOCRINE/METABOLIC Hx Diabetes Mellitus Type 2: Yes - HEMATOLOGICAL/ONCOLOGICAL Hx Blood Transfusions: No Hx Blood Transfusion Reaction: No - INTEGUMENTARY Hx Dermatological Problems: No - MUSCULOSKELETAL/RHEUMATOLOGICAL Hx Musculoskeletal Disorders: Yes - GASTROINTESTINAL Hx Gastrointestinal Disorders: No - GENITOURINARY/GYNECOLOGICAL Hx Genitourinary Disorders: No - PSYCHIATRIC Hx Substance Use: No - SURGICAL HISTORY Hx Cardiac Catheterization: Yes Hx Coronary Stent: Yes - ANESTHESIA Hx Anesthesia Reactions: No Hx Malignant Hyperthermia: No Meds Allergies/Adverse Reactions: Allergies Allergy/AdvReac Type Severity Reaction Status Date / Time pneumococcal vaccine Allergy SWELLING Verified 10/08/18 22:32 ORANGES AdvReac URTICARIA Uncoded 10/05/18 11:50 - Medications Medications: Current Medications Acetaminophen (Tylenol 325mg Tab) 650 mg PO Q6H PRN PRN Reason: Fever >100.4 F Albuterol/Ipratropium (Duoneb 3 Mg/0.5 Mg (3 Ml) Ud) 3 ml IH Q2H PRN PRN Reason: Shortness of Breath Albuterol/Ipratropium (Duoneb 3 Mg/0.5 Mg (3 Ml) Ud) 3 ml IH [id number] [facility] Last Admin: 10/08/18 07:59 Dose: 3 ml Aspirin (Ecotrin) 81 mg PO DAILY [facility] Last Admin: 10/08/18 11:24 Dose: 81 mg Atorvastatin Calcium (Lipitor) 40 mg PO HS [facility] Last Admin: 10/07/18 21:28 Dose: 40 mg Azithromycin (Zithromax) 250 mg PO DAILY [facility]; Protocol Stop: 10/12/18 10:01 Last Admin: 10/08/18 11:23 Dose: 250 mg Budesonide (Pulmicort Respules) 0.5 mg IH [id number] [facility] Last Admin: 10/08/18 07:59 Dose: 0.5 mg Enoxaparin Sodium (Lovenox) 30 mg SC DAILY [facility]; Protocol Last Admin: 10/08/18 11:23 Dose: 30 mg Ceftriaxone Sodium (Rocephin 1 Gram Ivpb) 1 gm in 100 mls @ 100 mls/hr IVPB 1400 [facility]; Protocol Last Admin: 10/07/18 13:27 Dose: 100 mls/hr Insulin Detemir (Levemir) 10 unit SC [facility] Last Admin: 10/07/18 22:10 Dose: 10 units Insulin Human Regular (Humulin R Med) 0 units SC [facility]; Protocol Last Admin: 10/08/18 08:47 Dose: 3 units Methylprednisolone (Solu-Medrol) 40 mg IV DAILY [facility] Last Admin: 10/08/18 11:23 Dose: 40 mg Metoprolol Tartrate (Lopressor) 25 mg PO BID [facility] Last Admin: 10/08/18 11:23 Dose: 25 mg Pantoprazole Sodium (Protonix Ec Tab) 40 mg PO 0630 [facility] Last Admin: 10/08/18 05:31 Dose: 40 mg Potassium Phos/Sodium Phos (Neutra-Phos) 1 pkt PO BID [facility] Stop: 10/09/18 10:01 Last Admin: 10/08/18 11:23 Dose: 1 pkt Physical Exam - Constitutional Appears: Non-toxic - Head Exam Head Exam: ATRAUMATIC - Extremities Exam Additional comments: VASC: pulses palpable; cap refill <3 seconds to digits; no edema noted DERM: elongated dystrophic nails to digits x10 ORTHO: no pain to b/l LE, no other gross pathology noted NEURO: intact - Neurological Exam Neurological exam: Alert, Oriented x3 - Psychiatric Exam Psychiatric exam: Normal Affect Results - Vital Signs Recent Vital Signs: Last Vital Signs Temp 98.1 F 10/08/18 06:00 Pulse 67 10/08/18 06:00 Resp 18 10/08/18 06:00 BP 134/65 10/08/18 06:00 Pulse Ox 96 10/08/18 06:00 - Labs Result Diagrams: 10/07/18 07:00 10/07/18 07:00 Labs: Laboratory Results - last 24 hr 10/07/18 10/07/18 10/08/18 16:00 21:27 06:41 POC Glucose (mg/dL) 209 H 201 H 231 H 10/08/18 11:19 POC Glucose (mg/dL) 282 H Assessment & Plan - Assessment and Plan (Free Text) Assessment: 83F with elongated dystrophic nails Plan: Patient seen and evaluated with Dr. Jairo SUE Patients nails cut with nail nipper x10 without incident Patient tolerated well Podiatry to sign off Thank you for the consult - Date & Time Date: 10/08/18 Time: 12:18 <Prasanth Gill - Last Filed: 10/10/18 07:38> Results - Vital Signs Recent Vital Signs: Last Vital Signs Temp 98.2 F 10/08/18 14:00 Pulse 62 10/08/18 14:00 Resp 20 10/08/18 14:00 BP 138/64 10/08/18 14:00 Pulse Ox 94 L 10/08/18 14:00 - Labs Result Diagrams: 10/07/18 07:00 10/07/18 07:00 Labs: Laboratory Results - last 24 hr 10/07/18 06:00 ANCA Screen Negative c-ANCA Titer TNP Proteinase 3 (PR3) <1.0 p-ANCA Titer TNP Atypical p-ANCA Titer TNP Myeloperoxidase Ab <1.0 Attending/Attestation - Attestation I have personally seen and examined this patient.: Yes I have fully participated in the care of the patient.: Yes I have reviewed all pertinent clinical information: Yes
[2018-10-08] MEDS: cefTRIAXone 1 gm 1 GM/100 ML BAG IVPB SCH (14:18)
[2018-10-08 15:04] VITALS: BP 138/64; PULSE 62; RESP 20; TEMP 98.2; O2SAT 94
--- NOTE | 2018-10-09 02:38 | DS ---
HISTORY OF PRESENT ILLNESS: The patient has no complaints of any chest pain. No shortness of breath. No headaches or dizziness. She was admitted to the hospital because of community-acquired pneumonia. The patient's pneumonia is improving. She is feeling better, but remains with a cough that is productive. She was seen by physical therapy yesterday and it was determined that the patient may benefit from physical therapy on the Transitional Care Unit. She has no headaches or dizziness. No nausea or vomiting. She was seen by Infectious Disease and has been on IV antibiotics. PHYSICAL EXAMINATION: VITAL SIGNS: Temperature is 98.1, pulse of 67, blood pressure 134/65, and respirations 18. GENERAL: The patient is lying in bed, flat, comfortable. HEENT: No oral lesion. Anicteric sclerae. Moist mucosa. NECK: No JVD, adenopathy, or thyromegaly. CARDIOVASCULAR: S1 and S2, regular. No murmurs, rubs, or gallops. LUNGS: Clear to auscultation bilaterally. No wheeze, rales, or rhonchi. ABDOMEN: Bowel sounds are positive, soft, nontender and nondistended. EXTREMITIES: No cyanosis, clubbing or edema. LABORATORY DATA: White count of 13.1, hemoglobin of 12, and creatinine of 0.6. ASSESSMENT: 1. Community-acquired pneumonia. 2. Gait dysfunction. 3. Sepsis secondary to community-acquired pneumonia. 4. Chronic obstructive pulmonary disease. 5. Hypertension. 6. Dyslipidemia. 7. Diabetes type 2. 8. Hypokalemia. PLAN: The patient is currently on insulin for diabetes. She is going to be on Lipitor for dyslipidemia. The patient is on Lovenox for DVT prophylaxis. The patient is on phosphorus replacement. She is on Solu-Medrol, I will decrease the patient's Solu-Medrol. Blood cultures and urine cultures have been negative. Her sugars have been elevated, most likely from the steroids. CONDITION: Stable. ACTIVITIES: Increase as tolerated. Damian Marsh MD
--- NOTE | 2018-10-09 08:09 | PN ---
DATE: 10/08/2018 SUBJECTIVE: The patient was seen early this morning in room 574, bed 2. No fevers. No chills. She is doing much better. PHYSICAL EXAMINATION: VITAL SIGNS: Temperature is 98, blood pressure is 138/60, respiratory rate of 20. HEENT: Unremarkable. NECK: Supple. LUNGS: Decreased breath sounds. HEART: Normal S1 and S2. ABDOMEN: Soft and nontender. LABORATORY DATA: Reveals a white count of 13,000. Chemistries are noted; BUN of 19, creatinine of 0.6. Microbiology is noted; negative blood cultures, negative urine cultures. Procalcitonin of 0.15. ASSESSMENT AND PLAN: An 83-year-old female, long-term smoker, was admitted with sepsis, left-sided community-acquired pneumonia with normal procalcitonin. Complete oral Zithromax, and follow up with pulmonary doctor. Andrea García MD
[2018-10-10 01:53] LABS: ANCA SCREEN NEGATIVE (NEGATIVE)
== END 2018-10-08 15:11 | DRG 871 ==
LOC: ED 11:40 → ERH 17:04 → 5RNO 20:09 → 5RSO 10-06 09:48
PROVIDERS: ADMIT Internal Medicine; ATTEND Internal Medicine Nephrology
PROC: 3E0F7GC Introduction of Other Therapeutic Substance into Respiratory Tract, Via Natural or Artificial Opening (ICD-10-PCS; principal; 2018-10-05)
DX: A41.9 Sepsis, unspecified organism (principal); J18.9 Pneumonia, unspecified organism; J44.0 Chronic obstructive pulmonary disease with (acute) lower respiratory infection; J44.1 Chronic obstructive pulmonary disease with (acute) exacerbation; I25.10 Atherosclerotic heart disease of native coronary artery without angina pectoris; I10 Essential (primary) hypertension; E78.5 Hyperlipidemia, unspecified; R19.7 Diarrhea, unspecified; E11.9 Type 2 diabetes mellitus without complications; E87.6 Hypokalemia; K27.9 Peptic ulcer, site unspecified, unspecified as acute or chronic, without hemorrhage or perforation; I25.2 Old myocardial infarction; F17.210 Nicotine dependence, cigarettes, uncomplicated; Z79.82 Long term (current) use of aspirin; Z79.84 Long term (current) use of oral hypoglycemic drugs; Z79.899 Other long term (current) drug therapy; Z95.5 Presence of coronary angioplasty implant and graft

== ENCOUNTER 2018-10-08 15:18 | Inpatient (IN) | payer OTHER, MEDICARE ==
[2018-10-08 15:22] VITALS: BMI 25.4
[2018-10-08] MEDS ORDERED: Albuterol-Ipratrop 3 mg / 0.5 (3 ml) UD IH PRN (15:52)
[2018-10-08] MEDS: Insulin Reg-MEDIUM-Coverage SC SCH ×2 (17:47→21:44)
[2018-10-08] MEDS ORDERED: Potassium & Sodium Phosphate PO SCH (18:00)
[2018-10-08] MEDS: Arformoterol 15 mcg/2 ml Inh Sol IH SCH (19:25)
[2018-10-08] MEDS: Budesonide 0.5 mg/2 ml Inhal Susp UD IH SCH (19:25)
[2018-10-08] MEDS: Albuterol-Ipratrop 3 mg / 0.5 (3 ml) UD IH SCH (19:26)
[2018-10-08] MEDS: Insulin Detemir 100 units/ml Vial (Levemir) SC SCH (21:45)
[2018-10-09] MEDS: Enoxaparin 30 mg Syringe SC SCH (05:47)
[2018-10-09] MEDS: cefTRIAXone 1 gm 1 GM/100 ML BAG IVPB SCH (05:47)
[2018-10-09] MEDS: Pantoprazole 40 mg EC Tab PO SCH (05:48)
[2018-10-09] MEDS: Insulin Reg-MEDIUM-Coverage SC SCH ×4 (06:51→22:04)
[2018-10-09] MEDS: Arformoterol 15 mcg/2 ml Inh Sol IH SCH ×2 (07:09→20:57)
[2018-10-09] MEDS: Albuterol-Ipratrop 3 mg / 0.5 (3 ml) UD IH SCH (07:10)
[2018-10-09] MEDS: Budesonide 0.5 mg/2 ml Inhal Susp UD IH SCH ×2 (07:10→20:57)
[2018-10-09] MEDS ORDERED: MethylPREDNISolone 40 mg Vial IV SCH (08:00)
--- NOTE | 2018-10-09 14:45 | HP ---
DATE OF EXAM: 10/09/2018 CHIEF COMPLAINT AND HISTORY OF PRESENT ILLNESS: This is an 83-year-old female who is coming into the hospital because of sepsis from community-acquired pneumonia. She had improvement of her symptoms. She has been transferred to the transitional care unit for gait dysfunction instability. The patient continues with her antibiotics. She has no complaints of any chest pain. No shortness of breath. No headaches or dizziness. Most of the information is taken from the patient as well as medical records that I reviewed from the hospital. The patient has a cough. She does have congestion. She says that she has sputum production, but it is better than when she first came into the hospital. She has no abdominal pain. No back pain. No dysuria or frequency. No nocturia. No weakness in the arms and the legs. REVIEW OF SYMPTOMS: All other review of symptoms are within normal limits except that was mentioned. ALLERGIES: SHE IS ALLERGIC TO ORANGES. PAST MEDICAL HISTORY: 1. Hypertension. 2. Coronary artery disease. 3. COPD with angioplasty. 4. Diabetes type 2. 5. Chronic diarrhea. SOCIAL HISTORY: She is an active smoker. Smokes 1 pack per day for last 40 years. She denies alcohol. She was advised to cut down her smoking. MEDICATIONS: Reviewed on the AUG. FAMILY HISTORY: Noncontributory. PHYSICAL EXAMINATION: VITAL SIGNS: Temperature is 97.6, pulse of 66, blood pressure is 144/69, respirations 20. Height is 5 feet 2 inches. Weight is 139 pounds. BMI is 25.5. GENERAL: The patient is lying in bed, comfortable, and in no acute distress. HEENT: Atraumatic and normocephalic. Anicteric sclerae. Moist mucosa. [place] conjunctivae. No oral lesions. NECK: No JVD, anterior and posterior adenopathy, thyromegaly, or bruits. CARDIOVASCULAR: S1 and S2 regular. No murmurs, rubs or gallops. LUNGS: Clear to auscultation bilaterally. No wheezes, rales, or rhonchi. ABDOMEN: Bowel sounds are positive. Soft, nontender and nondistended. No hepatosplenomegaly. No rebound and no guarding. EXTREMITIES: No cyanosis, clubbing, or edema. NEUROLOGIC: No facial asymmetry. Tongue is midline. No uvula deviation. Power is 5/5 upper extremities and lower extremities. Sensation intact in upper extremities and lower extremities. PSYCHIATRIC: She is awake, alert and oriented x3. No anxiety or depression. She has normal affect. GENITOURINARY: No CVA tenderness. VASCULAR: 2+ pulses in the carotid pulses and pedal pulses. SKIN: No erythema or nodules SPINE: Shows normal curvature. LABORATORY DATA: Her fingerstick this morning is 148 and 278. Her labs from 10/07/2018 shows a white count of 13.1, hemoglobin is 12. She has a chemistry of sodium 138, creatinine is 0.6. The patient had a CT of the chest done on 10/05/2018 which showed some segmental left upper and left lower lobe infiltrate. ASSESSMENT: 1. Community-acquired pneumonia, multilobar with left upper and left lower lobe infiltrates. 2. Sepsis. 3. Chronic obstructive pulmonary disease. 4. Hypertension. 5. Dyslipidemia. 6. Diabetes type 2. PLAN: The patient is currently comfortable. She is on the transitional care unit. She is going to be on nebulizer treatments. The patient is receiving aspirin daily. She is on insulin for her diabetes. She is going to continue with Levemir. She is on Lipitor for dyslipidemia. She is on Lovenox for DVT prophylaxis. She was given phosphorus replacement. The patient is on Solu-Medrol that is being tapered. She is on Tylenol as needed. The patient is on Zithromax. I will change her Solu-Medrol to prednisone orally. She is going to get physical therapy. She is eating well. We will also order a.m. labs. She is going to be seen by for her nail clipping. She is going to continue to be followed by Dr. García. Damian Marsh MD
[2018-10-09] MEDS: Insulin Detemir 100 units/ml Vial (Levemir) SC SCH (22:05)
--- NOTE | 2018-10-10 00:03 | CON ---
DATE: 10/09/2018 LOCATION: The patient seen earlier today in room 322, bed 2. CHIEF COMPLAINT: Cough times several days. HISTORY OF PRESENT ILLNESS: This is an 83-year-old female, who is a long-time smoker, continues to smoke with an end-stage COPD, diabetes, hypertension, coronary artery disease, myocardial infarction, and peptic ulcer disease, who was initially admitted to the acute care with diagnosis of pneumonia, rule out tuberculosis. Upon further examination, the patient born in [place] and has never traveled to any place, exposure to tuberculosis, only travel was many years ago to [place] who is admitted with basically left-sided community-acquired pneumonia. Isolation was discontinued at that time and the patient overall much improved, now transferred to transitional care to complete therapy. PAST MEDICAL HISTORY: Significant for end-stage COPD, diabetes, hypertension, coronary artery disease, myocardial infarction, and peptic ulcer disease. PAST SURGICAL HISTORY: Significant for colonoscopy and cardiac catheterization. ALLERGIES: THE PATIENT IS ALLERGIC TO PNEUMOCOCCAL VACCINE AND ORANGES. REVIEW OF SYSTEMS: A 12-point review of systems is performed. PHYSICAL EXAMINATION: GENERAL: The patient is in bed. VITAL SIGNS: Temperature is 98, blood pressure is 170/70, respiratory rate of 20, and heart rate of 72. HEENT: Unremarkable. NECK: Supple. LUNGS: Decreased breath sounds. HEART: Normal S1 and S2. ABDOMEN: Soft. LABORATORY EXAMINATION: Reveals the blood cultures are no growth and urine cultures, no growth. Chest x-ray is noted. ASSESSMENT AND PLAN: An 83-year-old with sepsis, left-sided community-acquired pneumonia. No evidence of tuberculosis. Currently on ceftriaxone and Zithromax. The patient did have procalcitonin was 0.15, likely the bacterial pneumonia. May discontinue ceftriaxone and complete a short course of Zithromax. Overall, the patient is much improved. We will follow with you. Thus far, the cultures are negative. Andrea García MD
[2018-10-10] MEDS: Pantoprazole 40 mg EC Tab PO SCH (05:48)
[2018-10-10] MEDS: cefTRIAXone 1 gm 1 GM/100 ML BAG IVPB SCH (05:48)
[2018-10-10] MEDS: Enoxaparin 30 mg Syringe SC SCH (05:48)
[2018-10-10] MEDS: Insulin Reg-MEDIUM-Coverage SC SCH ×4 (06:45→22:06)
[2018-10-10] MEDS: Budesonide 0.5 mg/2 ml Inhal Susp UD IH SCH ×2 (07:25→20:18)
[2018-10-10] MEDS: Arformoterol 15 mcg/2 ml Inh Sol IH SCH ×2 (07:25→20:18)
--- NOTE | 2018-10-10 19:30 | PN ---
DATE: 10/10/2018 SUBJECTIVE: The patient is in bed in no acute distress, nontoxic. PHYSICAL EXAMINATION VITAL SIGNS: On exam the patient's temperature is 97, blood pressure is 136/70 and respiratory rate of 20. HEENT: Unremarkable. NECK: Supple. LUNGS: Have decreased breath sounds. HEART: Normal S1 and S2. ABDOMEN: Soft and nontender. LABORATORY EXAMINATION: Noted. ASSESSMENT AND PLAN: This is an 83-year-old female who was admitted with sepsis, left-sided community-acquired pneumonia with no evidence of tuberculosis on ceftriaxone and complete with short course of p.o. Zithromax. Review of orders reveals the patient is on prednisone and ceftriaxone and Zithromax, we will continue. The patient is doing well. We will follow with you. Andrea García MD
--- NOTE | 2018-10-10 21:04 | PN ---
DATE: 10/10/2018 SUBJECTIVE: The patient has no complaints of chest pain, no shortness of breath, and no headaches. PHYSICAL EXAMINATION: VITAL SIGNS: Temperature is 97.8, pulse is 61, blood pressure is 150/67, and respirations 14. GENERAL: The patient is lying in bed, flat, comfortable. HEENT: No oral lesion. Anicteric sclerae. Moist mucosa. NECK: No JVD, adenopathy, or thyromegaly. CARDIOVASCULAR: S1 and S2, regular. No murmurs, rubs, or gallops. LUNGS: Clear to auscultation bilaterally. No wheeze, rales, or rhonchi. ABDOMEN: Bowel sounds are positive, soft, nontender and nondistended. EXTREMITIES: no cyanosis, clubbing or edema. ASSESSMENT: 1. Community-acquired pneumonia, multilobar, improving. 2. Sepsis. 3. Chronic obstructive pulmonary disease. 4. Hypertension. 5. Dyslipidemia. 6. Diabetes type 2. PLAN: The patient is currently on Brovana for her breathing. She is on aspirin daily. She is on insulin detemir for her diabetes. She has coverage with regular insulin. She is on Lipitor for dyslipidemia. She is on Lovenox for DVT prophylaxis. She is on prednisone orally. She is on IV antibiotics as well as p.o. Zithromax. She states she is feeling better. Damian Marsh MD
[2018-10-10] MEDS: Insulin Detemir 100 units/ml Vial (Levemir) SC SCH (22:05)
[2018-10-11] MEDS: Pantoprazole 40 mg EC Tab PO SCH (05:36)
[2018-10-11] MEDS: cefTRIAXone 1 gm 1 GM/100 ML BAG IVPB SCH (05:36)
[2018-10-11] MEDS: Enoxaparin 30 mg Syringe SC SCH (05:47)
[2018-10-11] MEDS: Insulin Reg-MEDIUM-Coverage SC SCH ×4 (06:53→22:25)
[2018-10-11] MEDS: Budesonide 0.5 mg/2 ml Inhal Susp UD IH SCH ×2 (07:34→22:44)
[2018-10-11] MEDS: Arformoterol 15 mcg/2 ml Inh Sol IH SCH ×2 (07:34→22:44)
--- NOTE | 2018-10-11 11:52 | PN ---
DATE: 10/11/2018 SUBJECTIVE: The patient has no complaints of any chest pain and no shortness of breath. She says her cough is improving. PHYSICAL EXAMINATION: VITAL SIGNS: Temperature is 97.8, pulse is 61, blood pressure is 151/65, and respirations 14. GENERAL: The patient is lying in bed, flat, comfortable. HEENT: No oral lesion. Anicteric sclerae. Moist mucosa. NECK: No JVD, adenopathy, or thyromegaly. CARDIOVASCULAR: S1 and S2, regular. No murmurs, rubs, or gallops. LUNGS: Clear to auscultation bilaterally. No wheeze, rales, or rhonchi. ABDOMEN: Bowel sounds are positive, soft, nontender and nondistended. EXTREMITIES: No cyanosis, clubbing, or edema. ASSESSMENT: 1. Community-acquired pneumonia, improving. 2. Sepsis, improving. 3. Chronic obstructive pulmonary disease. 4. Hypertension. 5. Dyslipidemia. 6. Diabetes type 2. PLAN: The patient is currently on aspirin. She is going to continue on Levemir for diabetes and Lipitor for dyslipidemia. The patient is on Lovenox for DVT prophylaxis. She is receiving Rocephin and Zithromax for her IV antibiotics. I will change her Zithromax to Augmentin at this point. Damian Marsh MD
[2018-10-11] MEDS: Amoxicillin-Clav 500-125 mg Tab PO SCH ×2 (13:23→21:38)
[2018-10-11] MEDS: Insulin Detemir 100 units/ml Vial (Levemir) SC SCH (21:38)
--- NOTE | 2018-10-12 00:07 | PN ---
DATE: 10/11/2018 SUBJECTIVE: The patient seen early this morning in room 322, bed 2. No fevers, no chills. No nausea. PHYSICAL EXAMINATION VITAL SIGNS: Temperature is 98, blood pressure is 130/60, respiratory rate of 18. HEENT: Unremarkable. NECK: Supple. LUNGS: Have decreased breath sounds. HEART: Normal S1, S2. ABDOMEN: Soft, nontender. LABORATORY EXAMINATION: Reviewed. Microbiology is noted. REVIEW OF ORDERS: Reveals the patient is on p.o. azithromycin. ASSESSMENT AND PLAN: This is an 83-year-old female who was admitted with sepsis, left-sided community-acquired pneumonia with of tuberculosis, had completed with ceftriaxone and Zithromax. Currently on Zithromax p.o. The patient is also on prednisone. We will follow with you. Andrea García MD
[2018-10-12] MEDS: Enoxaparin 30 mg Syringe SC SCH (07:01)
[2018-10-12] MEDS: Pantoprazole 40 mg EC Tab PO SCH (07:01)
[2018-10-12] MEDS: Amoxicillin-Clav 500-125 mg Tab PO SCH ×3 (07:02→21:59)
[2018-10-12] MEDS: Insulin Reg-MEDIUM-Coverage SC SCH ×4 (07:03→22:16)
[2018-10-12] MEDS: Arformoterol 15 mcg/2 ml Inh Sol IH SCH ×2 (07:38→20:50)
[2018-10-12] MEDS: Budesonide 0.5 mg/2 ml Inhal Susp UD IH SCH ×2 (07:38→20:50)
--- NOTE | 2018-10-12 11:52 | PN ---
DATE: 10/12/2018 SUBJECTIVE: The patient is in bed in no acute distress, nontoxic, doing well. She is asking about going home this morning. PHYSICAL EXAMINATION: VITAL SIGNS: Temperature is 98, blood pressure is 112/70, respiratory rate of 16. HEENT: Unremarkable. NECK: Supple. LUNGS: Have decreased breath sounds. HEART: Normal S1, S2. ABDOMEN: Soft, nontender. LABORATORY EXAMINATION: Reviewed. Dr. Marsh's note is reviewed. ASSESSMENT AND PLAN: This is an 83-year-old admitted with left-sided community-acquired pneumonia and ceftriaxone was changed to Augmentin, currently on Zithromax and on Augmentin. May just complete with p.o. Zithromax and because of her underlying lung disease, may keep the Zithromax 250 mg once daily as the patient is discharged. Andrea García MD
--- NOTE | 2018-10-12 17:04 | PN ---
DATE: 10/12/2018 SUBJECTIVE: The patient has no complaints of any chest pain. No shortness of breath. No headaches. PHYSICAL EXAMINATION VITAL SIGNS: Temperature is 97.8, pulse of 66, blood pressure is 155/77 and respirations are 14. GENERAL: The patient is lying in bed, flat, comfortable. HEENT: No oral lesion. Anicteric sclerae. Moist mucosa. NECK: No JVD, adenopathy, or thyromegaly. CARDIOVASCULAR: S1 and S2, regular. No murmurs, rubs, or gallops. LUNGS: Clear to auscultation bilaterally. No wheeze, rales, or rhonchi. ABDOMEN: Bowel sounds are positive, soft, nontender and nondistended. EXTREMITIES: No cyanosis, clubbing or edema. ASSESSMENT: 1. Community-acquired pneumonia, improving. 2. Sepsis, improved. 3. Chronic obstructive pulmonary disease. 4. Hypertension. 5. Dyslipidemia. 6. Diabetes type 2. PLAN: The patient is currently on Augmentin for her antibiotics. She is on Brovana, this will be continued. She is on aspirin daily. She is on Levemir for her diabetes type 2. She is on Lipitor for dyslipidemia. She is going to continue with Lovenox for DVT prophylaxis. She is ambulating well. I will decrease her prednisone to 40 mg. She says that her cough and congestion are improving as well. She is going to be finishing her Zithromax. Damian Marsh MD
[2018-10-12] MEDS: Insulin Detemir 100 units/ml Vial (Levemir) SC SCH (21:59)
[2018-10-13] MEDS: Pantoprazole 40 mg EC Tab PO SCH (05:50)
[2018-10-13] MEDS: Amoxicillin-Clav 500-125 mg Tab PO SCH (05:50)
[2018-10-13] MEDS: Enoxaparin 30 mg Syringe SC SCH (05:51)
[2018-10-13] MEDS: Insulin Reg-MEDIUM-Coverage SC SCH ×4 (06:48→23:00)
[2018-10-13] MEDS: Arformoterol 15 mcg/2 ml Inh Sol IH SCH ×2 (07:57→20:11)
[2018-10-13] MEDS: Budesonide 0.5 mg/2 ml Inhal Susp UD IH SCH ×2 (07:57→20:11)
--- NOTE | 2018-10-13 09:17 | PN ---
DATE: 10/13/2018 SUBJECTIVE: The patient has no complaint of any chest pain or shortness of breath or headaches. PHYSICAL EXAMINATION: VITAL SIGNS: Temperature is 98.1, pulse of 64, blood pressure 122/66, respirations 18. GENERAL: The patient is lying in bed, flat, comfortable. HEENT: No oral lesion. Anicteric sclerae. Moist mucosa. NECK: No JVD, adenopathy, or thyromegaly. CARDIOVASCULAR: S1 and S2, regular. No murmurs, rubs, or gallops. LUNGS: Clear to auscultation bilaterally. No wheeze, rales, or rhonchi. ABDOMEN: Bowel sounds are positive, soft, nontender and nondistended. EXTREMITIES: No cyanosis, clubbing or edema. ASSESSMENT: 1. Community-acquired pneumonia, improving. 2. Sepsis improved. 3. Chronic obstructive pulmonary disease. 4. Hypertension. 5. Dyslipidemia. 6. Diabetes type 2. PLAN: The patient is going to continue with Augmentin. The patient is on Brovana for her inhaler and breathing. She is able to ambulate better. Her cough is improved. She is on insulin sliding scale. She is on Levemir for her diabetes. She is on Lipitor for dyslipidemia. She is on Lovenox for DVT prophylaxis. She is on tapering dose of prednisone. She has finished her Zithromax. I will discontinue her Zithromax at this point. I will also discontinue her Augmentin. Damian Marsh MD
--- NOTE | 2018-10-13 19:37 | PN ---
DATE: 10/13/2018 SUBJECTIVE: The patient seen earlier today in no acute distress. PHYSICAL EXAMINATION VITAL SIGNS: Temperature of 98, blood pressure is 109/59 and respiratory rate of 18. HEENT: Unremarkable. NECK: Supple. LUNGS: Have decreased breath sounds. HEART: Normal S1 and S2. ABDOMEN: Soft. LABORATORY EXAMINATION: Reveals the patient is off of antibiotics. ASSESSMENT AND PLAN: This is an 83-year-old female, with left-sided community-acquired pneumonia and now has completed antibiotic therapy. The patient is at risk for developing nosocomial infection. Andrea García MD
[2018-10-13] MEDS: Insulin Detemir 100 units/ml Vial (Levemir) SC SCH (22:47)
[2018-10-14] MEDS: Enoxaparin 30 mg Syringe SC SCH (06:44)
[2018-10-14] MEDS: Pantoprazole 40 mg EC Tab PO SCH (06:45)
[2018-10-14] MEDS: Insulin Reg-MEDIUM-Coverage SC SCH ×3 (06:45→17:24)
[2018-10-14] MEDS: Budesonide 0.5 mg/2 ml Inhal Susp UD IH SCH ×2 (07:14→20:08)
[2018-10-14] MEDS: Arformoterol 15 mcg/2 ml Inh Sol IH SCH ×2 (07:14→20:09)
--- NOTE | 2018-10-14 20:28 | PN ---
DATE: 10/14/2018 SUBJECTIVE: The patient has no complaints of any chest pain or shortness of breath, no headache. PHYSICAL EXAMINATION VITAL SIGNS: Temperature is 97.6, pulse of 55 and blood pressure is 157/61. GENERAL: The patient is lying in bed, flat, comfortable. HEENT: No oral lesion. Anicteric sclerae. Moist mucosa. NECK: No JVD, adenopathy, or thyromegaly. CARDIOVASCULAR: S1 and S2, regular. No murmurs, rubs, or gallops. LUNGS: Clear to auscultation bilaterally. No wheeze, rales, or rhonchi. ABDOMEN: Bowel sounds are positive, soft, nontender and nondistended. EXTREMITIES: No cyanosis, clubbing or edema. ASSESSMENT: 1. Community-acquired pneumonia, improved. 2. Sepsis improved. 3. Chronic obstructive pulmonary disease. 4. Hypertension. 5. Dyslipidemia. 6. Diabetes type 2. PLAN: The patient is currently on aspirin daily. She is on insulin sliding scale. I will change her insulin coverage to a.c. breakfast and dinner. The patient is receiving Levemir for her insulin as well as she is on Lipitor for dyslipidemia. She is on Lovenox for deep venous thrombosis prophylaxis. She is ambulating fairly well, so I will discontinue the patient's Lovenox. She is on prednisone and this is being tapered. She is tolerating her diet. I will order labs for tomorrow. She will most likely be discharged in 2 days. Damian Marsh MD
--- NOTE | 2018-10-14 20:39 | PN ---
DATE: 10/14/2018 SUBJECTIVE: The patient is in bed, in no acute distress, nontoxic. PHYSICAL EXAMINATION: VITAL SIGNS: Temperature is 97, blood pressure is 119/50, respiratory rate of 20 and heart rate of 54. HEENT: Unremarkable. NECK: Supple. LUNGS: Decreased breath sounds. HEART: Normal S1 and S2. ABDOMEN: Soft and nontender. LABORATORY DATA: Noted. ASSESSMENT AND PLAN: This is an 83-year-old female with left-sided community-acquired pneumonia and end-stage chronic obstructive lung disease, has completed antibiotics. The patient's EKG shows QTc of 476. The patient is currently off of antibiotics, doing well. Andrea García MD
[2018-10-14] MEDS: Insulin Detemir 100 units/ml Vial (Levemir) SC SCH (23:03)
[2018-10-15] MEDS: Insulin Reg-MEDIUM-Coverage SC SCH ×2 (06:36→17:30)
[2018-10-15 06:42] LABS: HEMOGLOBIN 13.2 g/dL (12.0-16.0); MEAN CELL VOLUME 88.8 fl (80.0-105.0); MEAN CORPUSCULAR HEMOGLOBIN 29.5 pg (25.0-35.0); MEAN CORPUSCULAR HGB CONC 33.2 g/dl (31.0-37.0); MEAN PLATELET VOLUME 10.1 fl (7.0-11.0); RBC 4.48 10^6/uL (3.5-6.1); RED CELL DISTRIBUTION WIDTH 13.6 % (11.5-14.5); WHITE BLOOD COUNT 10.3 10^3/uL (4.5-11.0)
[2018-10-15] MEDS: Pantoprazole 40 mg EC Tab PO SCH (07:06)
[2018-10-15 07:10] LABS: ALB/GLOB RATIO 1.1 (1.1-1.8); ALBUMIN 3.2 g/dL (3.0-4.8); ALT/SGPT 46 U/L (7-56); AST/SGOT 28 U/L (14-36); BLOOD UREA NITROGEN 15 mg/dL (7-21); CALCIUM 8.9 mg/dL (8.4-10.5); GFR NON-AFRICAN AMERICAN > 60
[2018-10-15] MEDS: Arformoterol 15 mcg/2 ml Inh Sol IH SCH ×2 (07:21→20:23)
[2018-10-15] MEDS: Budesonide 0.5 mg/2 ml Inhal Susp UD IH SCH ×2 (07:21→20:24)
--- NOTE | 2018-10-15 09:33 | PN ---
DATE: 10/15/2018 SUBJECTIVE: The patient is seen earlier today in no acute distress. She is comfortable. No fevers and no chills. PHYSICAL EXAMINATION: VITAL SIGNS: On exam, temperature is 98, blood pressure is 157/61, respiratory rate of 18. HEENT: Unremarkable. NECK: Supple. HEART: Normal S1, S2. LUNGS: Decreased breath sounds. ABDOMEN: Soft. LABORATORY DATA: Noted. ASSESSMENT AND PLAN: This is an 83-year-old female with end-stage chronic obstructive lung disease who is admitted with left-sided community-acquired pneumonia, has had completed antibiotics. Currently now off antibiotics, afebrile. The patient is on prednisone. We will follow with you. Andrea García MD
--- NOTE | 2018-10-15 13:08 | CP.PCM.PN ---
<Vladimir Forde - Last Filed: 10/15/18 13:05> Subjective - Date & Time of Evaluation Date of Evaluation: 10/15/18 Time of Evaluation: 07:50 - Subjective Subjective: Vladimir Forde D.O. PGY-3, Internal Medicine Resident, Dr. Marsh's Service, Progress Note 83-year-old female with a past medical history of COPD, hypertension, hyperlipidemia, diabetes type 2 who was subsequently found to have sepsis second sierra to CAP, now being managed in the transitional care unit. Patient was seen and examined at bedside. Looks in great spirits. Eager to get better and go home. States that she has had no issues with her shortness of breath. Able to ambulate well with physical therapy during the day. Objective - Vital Signs/Intake and Output Vital Signs (last 24 hours): Temp Pulse Resp BP Pulse Ox 97.6 F 65 14 147/73 95 10/14/18 10:00 10/15/18 09:00 10/14/18 10:00 10/15/18 09:00 10/14/18 17:17 - Medications Medications: Current Medications Acetaminophen (Tylenol 325mg Tab) 650 mg PO Q6H PRN; Protocol PRN Reason: Fever >100.4 F Albuterol/Ipratropium (Duoneb 3 Mg/0.5 Mg (3 Ml) Ud) 3 ml IH Q2H PRN; Protocol PRN Reason: Shortness of Breath Arformoterol Tartrate (Brovana) 15 mcg IH [id number] [facility] Last Admin: 10/15/18 07:21 Dose: 15 mcg Aspirin (Ecotrin) 81 mg PO 0800 [facility]; Protocol Last Admin: 10/15/18 09:00 Dose: 81 mg Atorvastatin Calcium (Lipitor) 40 mg PO HS [facility]; Protocol Last Admin: 10/14/18 23:05 Dose: 40 mg Budesonide (Pulmicort Respules) 0.5 mg IH [id number] [facility]; Protocol Last Admin: 10/15/18 07:21 Dose: 0.5 mg Insulin Detemir (Levemir) 10 unit SC HS [facility]; Protocol Last Admin: 10/14/18 23:03 Dose: 10 units Insulin Human Regular (Humulin R Med) 0 units SC ACBD [facility]; Protocol Last Admin: 10/15/18 06:36 Dose: Not Given Metoprolol Tartrate (Lopressor) 25 mg PO 0800,1800 [facility]; Protocol Last Admin: 10/15/18 09:00 Dose: 25 mg - Labs Labs: 10/15/18 05:30 10/15/18 05:30 - Constitutional Appears: Non-toxic, No Acute Distress - Head Exam Head Exam: ATRAUMATIC, NORMOCEPHALIC - Eye Exam Eye Exam: EOMI. absent: Scleral icterus - ENT Exam ENT Exam: Mucous Membranes Moist, Normal Oropharynx - Neck Exam Neck Exam: Normal Inspection. absent: Lymphadenopathy - Respiratory Exam Respiratory Exam: Clear to Ausculation Bilateral. absent: Rhonchi, Wheezes - Cardiovascular Exam Cardiovascular Exam: +S1, +S2. absent: Gallop, Rubs - GI/Abdominal Exam GI & Abdominal Exam: Soft, Normal Bowel Sounds. absent: Tenderness - Extremities Exam Extremities Exam: absent: Calf Tenderness - Neurological Exam Neurological Exam: Alert, Awake - Skin Skin Exam: Dry, Warm Assessment and Plan - Assessment and Plan (Free Text) Assessment: 83-year-old female with a past medical history of COPD, hypertension, hyperlipidemia, diabetes type 2 who was subsequently found to have sepsis secondary to CAP, now being managed in the transitional care unit. Plan: 1. Gait dysfunction/instability 2. Sepsis secondary to community-acquired pneumonia, resolved 3. COPD 4. Hypertension 5. Dyslipidemia 6. Diabetes type 2 Patient doing significantly better. She finished a course of azithromycin and Augmentin. We will discontinue her prednisone as she has not had any respiratory issues or wheezing. We will continue with budesonide, Brovana, as needed nebs for her COPD. We will continue with aspirin and metoprolol for her CAD. Continue Lipitor for hyperlipidemia. Continue with Levemir at 10 at night with regular insulin sliding scale as needed. Ambulating well, will D/C lovenox given her low risk for clotting. We will continue to monitor the patient closely during rehabilitation. Patient was seen and examined and case discussed with attending physician. <Damian Marsh - Last Filed: 10/15/18 15:17> Objective - Vital Signs/Intake and Output Vital Signs (last 24 hours): Temp Pulse Resp BP Pulse Ox 97.6 F 65 14 147/73 95 10/14/18 10:00 10/15/18 09:00 10/14/18 10:00 10/15/18 09:00 10/14/18 17:17 - Medications Medications: Current Medications Acetaminophen (Tylenol 325mg Tab) 650 mg PO Q6H PRN; Protocol PRN Reason: Fever >100.4 F Albuterol/Ipratropium (Duoneb 3 Mg/0.5 Mg (3 Ml) Ud) 3 ml IH Q2H PRN; Protocol PRN Reason: Shortness of Breath Arformoterol Tartrate (Brovana) 15 mcg IH [id number] [facility] Last Admin: 10/15/18 07:21 Dose: 15 mcg Aspirin (Ecotrin) 81 mg PO 0800 [facility]; Protocol Last Admin: 10/15/18 09:00 Dose: 81 mg Atorvastatin Calcium (Lipitor) 40 mg PO HS [facility]; Protocol Last Admin: 10/14/18 23:05 Dose: 40 mg Budesonide (Pulmicort Respules) 0.5 mg IH [id number] [facility]; Protocol Last Admin: 10/15/18 07:21 Dose: 0.5 mg Insulin Detemir (Levemir) 10 unit SC HS [facility]; Protocol Last Admin: 10/14/18 23:03 Dose: 10 units Insulin Human Regular (Humulin R Med) 0 units SC ACBD [facility]; Protocol Last Admin: 10/15/18 06:36 Dose: Not Given Metoprolol Tartrate (Lopressor) 25 mg PO 0800,1800 [facility]; Protocol Last Admin: 10/15/18 09:00 Dose: 25 mg - Labs Labs: 10/15/18 05:30 10/15/18 05:30 Assessment and Plan - Assessment and Plan (Free Text) Plan: Pt seen and examined by me. I have reviewed the note of the medical accountant and I agree with it. I have discussed the assessment and plan with the resident. I have reviewed the medications and the last labs. Pt doing well with PT. The CAP has resolved. Her cough is improving. She is on Lipitor for dyslipidemia. She is on Budesonide and Brovana for her COPD. Will d/c her Prednisone. She is on Levemir for her DM-2. She will be discharged home tomorrow.
[2018-10-15] MEDS: Insulin Detemir 100 units/ml Vial (Levemir) SC SCH (21:53)
[2018-10-16] MEDS: Insulin Reg-MEDIUM-Coverage SC SCH (06:45)
[2018-10-16] MEDS: Budesonide 0.5 mg/2 ml Inhal Susp UD IH SCH (07:36)
[2018-10-16] MEDS: Arformoterol 15 mcg/2 ml Inh Sol IH SCH (07:36)
--- NOTE | 2018-10-16 11:51 | CP.PCM.DIS ---
<Vladimir Forde - Last Filed: 10/16/18 15:52> Provider - Provider Date of Admission: 10/08/18 15:18 Attending physician: Damian Marsh MD Primary care physician: Jamil Bright MD Consults: 10/08/18 15:54 Infectious Disease Consult Routine Comment: Consulting Provider: Andrea García Consulting Physician: Andrea García Reason for Consult: upper lobe pneumonia 10/08/18 15:55 Podiatry Consult Routine Comment: Consulting Provider: Pamela Gonzales Consulting Physician: Pamela Gonzales Reason for Consult: nail care 10/08/18 16:41 Social Work Referral Routine Comment: discharge planning Physician Instructions: Reason For Exam: Cyn > 7 Time Spent in preparation of Discharge (in minutes): 45 Diagnosis - Discharge Diagnosis (1) Gait dyspraxia Status: Acute (2) Pneumonia Status: Resolved (3) COPD (chronic obstructive pulmonary disease) Status: Chronic (4) CAD (coronary artery disease) Status: Chronic (5) Diabetes Status: Chronic Hospital Course - Lab Results Lab Results: Most Recent Lab Values WBC 10.3 10^3/uL (4.5-11.0) D 10/15/18 05:30 RBC 4.48 10^6/uL (3.5-6.1) 10/15/18 05:30 Hgb 13.2 g/dL (12.0-16.0) 10/15/18 05:30 Hct 39.8 % (36.0-48.0) 10/15/18 05:30 MCV 88.8 fl (80.0-105.0) 10/15/18 05:30 MCH 29.5 pg (25.0-35.0) 10/15/18 05:30 MCHC 33.2 g/dl (31.0-37.0) 10/15/18 05:30 RDW 13.6 % (11.5-14.5) 10/15/18 05:30 Plt Count 231 10^3/uL (120.0-450.0) 10/15/18 05:30 MPV 10.1 fl (7.0-11.0) 10/15/18 05:30 Sodium 138 mmol/L (132-148) 10/15/18 05:30 Potassium 3.6 mmol/L (3.6-5.0) 10/15/18 05:30 Chloride 104 mmol/L (98-107) 10/15/18 05:30 Carbon Dioxide 29 mmol/L (21-33) 10/15/18 05:30 Anion Gap 9 (10-20) L 10/15/18 05:30 BUN 15 mg/dL (7-21) 10/15/18 05:30 Creatinine 0.5 mg/dl (0.7-1.2) L 10/15/18 05:30 Est GFR ( Amer) > 60 10/15/18 05:30 Est GFR (Non-Af Amer) > 60 10/15/18 05:30 POC Glucose (mg/dL) 150 mg/dL (65-110) H 10/16/18 11:24 Random Glucose 104 mg/dL (70-110) 10/15/18 05:30 Calcium 8.9 mg/dL (8.4-10.5) 10/15/18 05:30 Total Bilirubin 0.3 mg/dL (0.2-1.3) 10/15/18 05:30 AST 28 U/L (14-36) 10/15/18 05:30 ALT 46 U/L (7-56) 10/15/18 05:30 Alkaline Phosphatase 60 U/L (38-126) 10/15/18 05:30 Total Protein 6.3 g/dL (5.8-8.3) 10/15/18 05:30 Albumin 3.2 g/dL (3.0-4.8) 10/15/18 05:30 Globulin 3.1 gm/dL 10/15/18 05:30 Albumin/Globulin Ratio 1.1 (1.1-1.8) 10/15/18 05:30 - Hospital Course Hospital Course: Vladimir Forde D.O. PGY-3, Internal Medicine Resident, Dr. Marsh's Service, Discharge Summary 83-year-old female with a past medical history of COPD, hypertension, hyperlipidemia, diabetes type 2 who was subsequently found to have sepsis secondary to CAP, resolved, then transferred to the transitional care unit for continued rehab. Patient's improvements in her status. She finished a course of azithromycin and Augmentin for her community acquired pneumonia. Her wheezing slowly improved and she no longer required prednisone. She was continued on her budesonide, Brovana, and as needed nebulizers for COPD. Patient was continued on her aspirin and metoprolol for her CAD. For hyperlipidemia she was continued on her home Lipitor. She was being given Levemir 10 units at nights with regular insulin sliding scale given her glycemic elevations with all of the steroids that she was given. Patient was originally on Lovenox with this was discussed he became more more ambulatory. Patient was seen and examined today at bedside and was doing significantly better. Plan for patient to be discharged home today. Discussed with case management. Granddaughter will be coming to tile picker the patient. Plan new scripts were printed out after med reconciliation was completed. After discussion with case management and nursing, patient realized that she does not have a nebulizer machine. Discussed with pharmacy downstairs unable to obtain a nebulizer machine for the patient. All questions welcomed and answered to the patient's satisfaction. - Date & Time of H&P Date of H&P: 10/16/18 Time of H&P: 15:30 Discharge Exam - Head Exam Head Exam: ATRAUMATIC, NORMOCEPHALIC - Eye Exam Eye Exam: EOMI. absent: Scleral icterus - ENT Exam ENT Exam: Mucous Membranes Moist, Normal Oropharynx - Respiratory Exam Respiratory Exam: absent: Rales, Rhonchi - Cardiovascular Exam Cardiovascular Exam: +S1, +S2. absent: Rubs - GI/Abdominal Exam GI & Abdominal Exam: Normal Bowel Sounds, Soft. absent: Distended, Tenderness - Extremities Exam Extremities exam: normal capillary refill - Neurological Exam Neurological exam: Alert - Skin Skin Exam: Dry, Warm Discharge Plan - Discharge Medications Prescriptions: Albuterol/Ipratropium [Duoneb 3 mg/0.5 mg (3 ml) UD] 3 ml IH [id number] 30 Days neb Atorvastatin [Lipitor] 40 mg PO DAILY #30 tab Budesonide [Pulmicort Respules] 0.5 mg IH [id number] #30 neb Carboxymethylcellulos/Glycerin [Refresh Optive Eye Drops] 1 drop RIGHTEYE DAILY 30 Days drops Esomeprazole Magnesium [Nexium] 40 mg PO DAILY 30 Days capsule.dr Lutein 20 mg PO DAILY 30 Days capsule metFORMIN [glucOPHAGE] 500 mg PO BID 30 Days #60 tab Metoprolol Tartrate [Lopressor] 25 mg PO BID 30 Days tab Phosphorus/Potassium/Sodium [Neutra-Phos] 1 pkt PO BID 30 Days #60 packet Rutin/Quercetin/Bioflav/Bilber [Bilberry Extract 40 mg Cap] 1 each PO DAILY 30 Days capsule Trental 100 mg PO ACBD 30 Days Vit A/Vit C/Vit E/Zinc/Copper [Preservision Areds Softgel] 1 each PO BID 30 Days capsule - Follow Up Plan Condition: GOOD Disposition: HOME/ ROUTINE Instructions: Pneumonia, Adult (DC), Diabetes Type 2 (DC), Sepsis, Adult (DC) Additional Instructions: 1. Follow-up with primary medical doctor within 1 to 2 weeks 2. Follow-up with subspecialists as indicated. 3. Refer to medication reconciliation. 4. Activity as tolerated. 5. Maintain hydration. Referrals: Jamil Bright MD [Primary Care Provider] - <Damian Marsh - Last Filed: 10/16/18 21:33> Provider - Provider Date of Admission: 10/08/18 15:18 Attending physician: Damian Marsh MD Primary care physician: Jamil Bright MD Consults: 10/08/18 15:54 Infectious Disease Consult Routine Comment: Consulting Provider: Andrea García Consulting Physician: Andrea García Reason for Consult: upper lobe pneumonia 10/08/18 15:55 Podiatry Consult Routine Comment: Consulting Provider: Pamela Gonzales Consulting Physician: Pamela Gonzales Reason for Consult: nail care 10/08/18 16:41 Social Work Referral Routine Comment: discharge planning Physician Instructions: Reason For Exam: Cyn > 7 Hospital Course - Lab Results Lab Results: Most Recent Lab Values WBC 10.3 10^3/uL (4.5-11.0) D 10/15/18 05:30 RBC 4.48 10^6/uL (3.5-6.1) 10/15/18 05:30 Hgb 13.2 g/dL (12.0-16.0) 10/15/18 05:30 Hct 39.8 % (36.0-48.0) 10/15/18 05:30 MCV 88.8 fl (80.0-105.0) 10/15/18 05:30 MCH 29.5 pg (25.0-35.0) 10/15/18 05:30 MCHC 33.2 g/dl (31.0-37.0) 10/15/18 05:30 RDW 13.6 % (11.5-14.5) 10/15/18 05:30 Plt Count 231 10^3/uL (120.0-450.0) 10/15/18 05:30 MPV 10.1 fl (7.0-11.0) 10/15/18 05:30 Sodium 138 mmol/L (132-148) 10/15/18 05:30 Potassium 3.6 mmol/L (3.6-5.0) 10/15/18 05:30 Chloride 104 mmol/L (98-107) 10/15/18 05:30 Carbon Dioxide 29 mmol/L (21-33) 10/15/18 05:30 Anion Gap 9 (10-20) L 10/15/18 05:30 BUN 15 mg/dL (7-21) 10/15/18 05:30 Creatinine 0.5 mg/dl (0.7-1.2) L 10/15/18 05:30 Est GFR ( Amer) > 60 10/15/18 05:30 Est GFR (Non-Af Amer) > 60 10/15/18 05:30 POC Glucose (mg/dL) 150 mg/dL (65-110) H 10/16/18 11:24 Random Glucose 104 mg/dL (70-110) 10/15/18 05:30 Calcium 8.9 mg/dL (8.4-10.5) 10/15/18 05:30 Total Bilirubin 0.3 mg/dL (0.2-1.3) 10/15/18 05:30 AST 28 U/L (14-36) 10/15/18 05:30 ALT 46 U/L (7-56) 10/15/18 05:30 Alkaline Phosphatase 60 U/L (38-126) 10/15/18 05:30 Total Protein 6.3 g/dL (5.8-8.3) 10/15/18 05:30 Albumin 3.2 g/dL (3.0-4.8) 10/15/18 05:30 Globulin 3.1 gm/dL 05/15/19 05:30 Albumin/Globulin Ratio 1.1 (1.1-1.8) 10/15/18 05:30 - Hospital Course Hospital Course: Pt seen and examined by me. I have reviewed the note of the ophthalmic medical assistant and I agree with it. I have discussed the assessment and plan with the resident. I have reviewed the medications and the last labs.
[2018-10-16 11:53] VITALS: BP 128/64; PULSE 58; RESP 14; TEMP 98.2; O2SAT 100
--- NOTE | 2018-10-16 14:08 | PN ---
DATE: 10/16/2018 SUBJECTIVE: The patient is in seen in bed, in no acute distress. PHYSICAL EXAMINATION: VITAL SIGNS: On exam, temperature is 98, blood pressure is 120/70, respiratory 18. HEENT: Unremarkable. NECK: Supple. LUNGS: Have decreased breath sounds. HEART: Normal S1, S2. ABDOMEN: Soft. LABORATORY DATA: Laboratory examination reveals a white count of 10,300 and chemistries are noted. ASSESSMENT AND PLAN: She is an 83-year-old female with end-stage chronic obstructive lung disease, admitted with left-sided community-acquired pneumonia and completed antibiotics. Currently off antibiotics. The patient is for discharge today. Andrea García MD
--- NOTE | 2018-10-17 00:42 | DS ---
HOSPITAL COURSE: The patient was seen and examined. I do agree with the note of the behavioral medical director. I was involved in the plan of care. The patient has finished her antibiotics with Augmentin and azithromycin. She is on Brovana and budesonide for her COPD. She is on aspirin and metoprolol for coronary artery disease. She is going to be on Lipitor for dyslipidemia. The patient is on Levemir for her diabetes. She is going to be discharged home today. She is going to follow up with the primary care doctor in 1 to 2 weeks after discharge. Damian Marsh MD
== END 2018-10-16 13:18 | disposition home or self-care (01) | DRG 91 ==
LOC: TRCU 15:18
PROVIDERS: ADMIT Internal Medicine Nephrology; ATTEND Internal Medicine Nephrology
PROC: F07Z9FZ Gait Training/Functional Ambulation Treatment using Assistive, Adaptive, Supportive or Protective Equipment (ICD-10-PCS; principal; 2018-10-10)
PROC: F07Z5FZ Bed Mobility Treatment using Assistive, Adaptive, Supportive or Protective Equipment (ICD-10-PCS; 2018-10-10)
PROC: F07Z8FZ Transfer Training Treatment using Assistive, Adaptive, Supportive or Protective Equipment (ICD-10-PCS; 2018-10-10)
PROC: F08Z2FZ Grooming/Personal Hygiene Treatment using Assistive, Adaptive, Supportive or Protective Equipment (ICD-10-PCS; 2018-10-11)
PROC: F08Z1ZZ Dressing Techniques Treatment (ICD-10-PCS; 2018-10-12)
DX: R27.8 Other lack of coordination (principal); A41.9 Sepsis, unspecified organism; J18.1 Lobar pneumonia, unspecified organism; J44.0 Chronic obstructive pulmonary disease with (acute) lower respiratory infection; R26.89 Other abnormalities of gait and mobility; Z79.2 Long term (current) use of antibiotics; E11.9 Type 2 diabetes mellitus without complications; E78.5 Hyperlipidemia, unspecified; I10 Essential (primary) hypertension; I25.10 Atherosclerotic heart disease of native coronary artery without angina pectoris; F17.210 Nicotine dependence, cigarettes, uncomplicated; I25.2 Old myocardial infarction; Z87.11 Personal history of peptic ulcer disease; Z79.4 Long term (current) use of insulin; Z79.82 Long term (current) use of aspirin